=== PATIENT | female | born 1955 | race Caucasian/White ===

== ENCOUNTER 2017-06-05 15:02 | Emergency (ER) | payer MEDICAID ==
[~2017-06-05] VITALS: Ht 152.4 cm; Wt 59.0 kg
[~2017-06-05 15:02] MED LIST: NITR100C PO
[2017-06-05] MEDS ORDERED: normal saline 1000ML IV soln IVB ONE (15:40)
[2017-06-05 16:37] LABS: BASOPHILS # (AUTO) 0.1 X10'3 (0-0.2); BASOPHILS % (AUTO) 0.9 % (0-1); EOSINOPHILS # (AUTO) 0.4 X10'3 (0-0.9); EOSINOPHILS % (AUTO) 3.6 % (0-6); HEMOGLOBIN 11.9 g/dl (12.0-16.0); LYMPHOCYTES # (AUTO) 2.9 X10'3 (1.1-4.8); LYMPHOCYTES % (AUTO) 25.1 % (21-51); MEAN CORPUSCULAR HEMOGLOBIN 30.6 PG (27.0-31.0); MEAN CORPUSCULAR HGB CONC 33.1 % (33.0-36.5); MEAN CORPUSCULAR VOLUME 92.6 FL (78-98); MEAN PLATELET VOLUME 9.3 FL (7.4-10.4); MONOCYTES # (AUTO) 1.1 X10'3 (0-0.9); MONOCYTES % (AUTO) 10.1 % (2-12); NEUTROPHILS # (AUTO) 6.8 X10'3 (1.8-7.7); NEUTROPHILS % (AUTO) 60.3 % (42-75); PLATELET COUNT 262 X10'3 (140-440); RED BLOOD COUNT 3.89 X10'6 (4.20-5.60); RED CELL DISTRIBUTION WIDTH 13.2 % (11.5-14.5); WHITE BLOOD COUNT 11.4 X10'3 (4.5-11.0)
[2017-06-05 16:47] LABS: PARTIAL THROMBOPLASTIN TIME 27 SECONDS (22-32); PROTHROMBIN TIME 9.9 SECONDS (9.0-12.0)
[2017-06-05 16:58] LABS: ALANINE AMINOTRANSFERASE 24 U/L (12-78); ALBUMIN 3.2 G/DL (3.4-5.0); ALBUMIN/GLOBULIN RATIO 0.7 (1.1-1.5); ALKALINE PHOSPHATASE 127 IU/L (46-116); ANION GAP 10 (8-16); ASPARTATE AMINO TRANSFERASE 15 U/L (10-37); BILIRUBIN,TOTAL 0.2 MG/DL (0.1-1.0); BLOOD UREA NITROGEN 36 MG/DL (7-18); BUN/CREATININE RATIO 15.9 (6.6-38.0); CALCIUM 9.2 MG/DL (8.5-10.1); CHLORIDE 112 MMOL/L (99-107); CREATININE 2.27 MG/DL (0.40-0.90); ETHANOL < 0.010 GM/DL (0.0-0.010); GLUCOSE 163 MG/DL (70-104); MAGNESIUM 1.9 MG/DL (1.5-2.4); PHOSPHORUS 3.3 MG/DL (2.3-4.5); POTASSIUM 4.3 MMOL/L (3.5-5.1); SODIUM 144 MMOL/L (135-145); TOTAL CARBON DIOXIDE 21.7 MMOL/L (24-32); TOTAL PROTEIN 7.6 G/DL (6.4-8.2); eGFR 22 ML/MIN
[2017-06-05 17:06] LABS: ACETAMINOPHEN < 2.0 UG/ML (10-30)
[2017-06-05 17:11] LABS: ABG HCO3 16.1 mmol/L (22.0-26.0); ABG OXYGEN SATURATION 95.7 % (95-98); ABG PCO2 (T) 32.1 mmHg (32.0-45.0); ABG PH (T) 7.317 (7.350-7.450); ABG PO2 (T) 83.7 mmHg (83-108); ALLEN'S TEST Positive; FCOHb 0.7 % (0.5-1.5); FMetHb 0.3 % (0.3-1.12); FO2Hb 94.7 % (94-100); RESPIRATORY RATE (OBSERVED) 20 b/min; TOTAL HEMOGLOBIN 12.2 G/dl (12.0-16.0)
[2017-06-05 18:41] LABS: CLARITY,URINE Clear (Clear); COLOR,URINE Yellow (Yellow); GLUCOSE, URINE 100 mg/dl (Neg); KETONES,URINE Negative (Neg); LEUKOCYTE ESTERASE ,URINE Negative (Neg); NITRITES, URINE Negative (Neg); OCCULT BLOOD,URINE Negative (Neg); PH,URINE 5.5 (4.8-8.0); PROTEIN,URINE Trace mg/dl (Neg); UROBILINOGEN,URINE 0.2 E.U/dL (0.2-1.0)
[2017-06-05 18:53] LABS: URINE AMPHETAMINE SCREEN NEGATIVE (Neg); URINE BARBITUATE SCREEN NEGATIVE (Neg); URINE BENZODIAZEPINES SCREEN NEGATIVE (Neg); URINE CANNABINOID SCREEN NEGATIVE (Neg); URINE COCAINE SCREEN NEGATIVE (Neg); URINE METHADONE SCREEN NEGATIVE (Neg); URINE OPIATE SCREEN NEGATIVE (Neg); URINE PHENCYCLIDINE SCREEN NEGATIVE (Neg)
[2017-06-05 18:56] LABS: BACTERIA,URINE FEW /HPF (Neg); RBC,URINE 0-2 /HPF (0-2); SQUAMOUS EPITHELIAL CELL,UR FEW /LPF (FEW); UA COLLECTION TYPE CLN CATCH MIDSTREAM; WBC,URINE NONE SEEN /HPF (0-4)
[2017-06-05] MEDS ORDERED: OMEP20TA5 PO (19:20)
[2017-06-05] MEDS ORDERED: KEF125L PO (19:20)
[2017-06-05] MEDS ORDERED: CEPH500C2 PO (19:20)
[2017-06-05] MEDS ORDERED: SYN0.088T PO (19:20)
[2017-06-05] MEDS ORDERED: METO50TA17 PO (19:20)
[2017-06-05] MEDS ORDERED: ACET-2319 PO (19:20)
[2017-06-05] MEDS ORDERED: LORA-269 PO (19:20)
[2017-06-05] MEDS ORDERED: BACL10TA2 PO (19:20)
[2017-06-05] MEDS ORDERED: METF500T PO (19:20)
[2017-06-05] MEDS ORDERED: GLIM2TAB PO (20:09)
[2017-06-05 20:18] VITALS: BP 201/201
[2017-06-08] MEDS ORDERED: glimepiride 1 MG tablet PO SCH (09:00)
== END 2017-06-05 20:36 | disposition home or self-care (01) ==
LOC: ER 15:02
DX: E11.65 Type 2 diabetes mellitus with hyperglycemia (principal); I10 Essential (primary) hypertension; R41.82 Altered mental status, unspecified
CPT/HCPCS: 36415; 36600; 70450; 71010; 80053; 80305; 80320; 80329; 81001; 82140; 82803; 82948; 83735; 84100; 84484; 85018; 85025; 85610; 85730; 93005; 96360; 99285; J7030

== ENCOUNTER 2017-06-10 12:58 | Inpatient (IN) | payer MEDICAID ==
[~2017-06-10] VITALS: Ht 152.4 cm; Wt 52.3 kg
[~2017-06-10 12:58] MED LIST changes: +ACET-2319 PO; +BACL10TA2 PO; +CEPH500C2 PO; +GLIM2TAB PO; +LORA-269 PO; +METF500T PO; +METO50TA17 PO; -NITR100C PO; +OMEP20TA5 PO; +SYN0.088T PO
[2017-06-10 14:40] LABS: BASOPHILS # (AUTO) 0.1 X10'3 (0-0.2); BASOPHILS % (AUTO) 0.5 % (0-1); EOSINOPHILS # (AUTO) 0.3 X10'3 (0-0.9); EOSINOPHILS % (AUTO) 2.1 % (0-6); HEMATOCRIT 36.2 % (35.0-45.0); LYMPHOCYTES # (AUTO) 5.4 X10'3 (1.1-4.8); LYMPHOCYTES % (AUTO) 39.9 % (21-51); MEAN CORPUSCULAR HEMOGLOBIN 30.4 PG (27.0-31.0); MEAN CORPUSCULAR HGB CONC 33.2 % (33.0-36.5); MEAN CORPUSCULAR VOLUME 91.6 FL (78-98); MEAN PLATELET VOLUME 9.7 FL (7.4-10.4); MONOCYTES # (AUTO) 0.8 X10'3 (0-0.9); NEUTROPHILS # (AUTO) 6.9 X10'3 (1.8-7.7); NEUTROPHILS % (AUTO) 51.5 % (42-75); PLATELET COUNT 312 X10'3 (140-440); RED BLOOD COUNT 3.95 X10'6 (4.20-5.60); WHITE BLOOD COUNT 13.4 X10'3 (4.5-11.0)
[2017-06-10 14:47] LABS: INR 0.9 INR; PROTHROMBIN TIME 9.6 SECONDS (9.0-12.0)
[2017-06-10 14:56] LABS: LACTIC SEPSIS 1.2 MMOL/L (0.4-2.0)
[2017-06-10 15:03] LABS: ALANINE AMINOTRANSFERASE 26 U/L (12-78); ALBUMIN 3.6 G/DL (3.4-5.0); ALBUMIN/GLOBULIN RATIO 0.8 (1.1-1.5); ALKALINE PHOSPHATASE 126 IU/L (46-116); ANION GAP 12 (8-16); ASPARTATE AMINO TRANSFERASE 12 U/L (10-37); BILIRUBIN,TOTAL 0.2 MG/DL (0.1-1.0); BLOOD UREA NITROGEN 40 MG/DL (7-18); BUN/CREATININE RATIO 22.1 (6.6-38.0); CALCIUM 9.9 MG/DL (8.5-10.1); CHLORIDE 106 MMOL/L (99-107); CREATININE 1.81 MG/DL (0.40-0.90); GLUCOSE 161 MG/DL (70-104); POTASSIUM 4.2 MMOL/L (3.5-5.1); SODIUM 141 MMOL/L (135-145); TOTAL CARBON DIOXIDE 23.5 MMOL/L (24-32); TOTAL PROTEIN 8.3 G/DL (6.4-8.2); eGFR 29 ML/MIN
[2017-06-10 15:04] LABS: CREATINE KINASE 81 U/L (26-192); MAGNESIUM 2.4 MG/DL (1.5-2.4); PHOSPHORUS 4.6 MG/DL (2.3-4.5)
[2017-06-10 15:05] LABS: ETHANOL < 0.010 GM/DL (0.0-0.010)
[2017-06-10] MEDS ORDERED: CefTRIAXone 2gm/NS 100ml IVPB 100 ML IV ONE (16:45)
[2017-06-10] MEDS ORDERED: azithromycin/NS 500mg/250ml 250 ML IV ONE (16:45)
[2017-06-10] MEDS ORDERED: magnesium hydroxide 30ml (MOM) UD suspension PO PRN (16:55)
[2017-06-10] MEDS ORDERED: magnesium 4gm in 100ml NS 100 ML IV PRN (16:55)
[2017-06-10] MEDS ORDERED: HYDROcodone/acetaminophen 5mg/325mg tablet PO PRN (16:55)
[2017-06-10] MEDS ORDERED: magnesium Cl slow-release 64mg tablet PO PRN (16:55)
[2017-06-10] MEDS ORDERED: mag hydrox/Alum hydrox/simeth 30ml oral suspension PO PRN (16:55)
[2017-06-10] MEDS ORDERED: acetaminophen 325mg tablet PO PRN (16:55)
[2017-06-10] MEDS: normal saline 1000ml 1,000 ML IV SCH (16:55)
[2017-06-10] MEDS ORDERED: metoclopramide 5 mg/ml inj IV PRN (16:55)
[2017-06-10] MEDS ORDERED: potassium Cl 40MEQ/NS 500ml 500 ML IV PRN ×2 (16:55)
[2017-06-10] MEDS ORDERED: magnesium 2GM in 50ml NS 50 ML IV PRN (16:55)
[2017-06-10] MEDS ORDERED: albuterol 2.5 MG/3 ML nebule NEB PRN (16:55)
[2017-06-10] MEDS ORDERED: morphine sulfate 8 MG/ML SYRINGE IV PRN (16:55)
[2017-06-10] MEDS ORDERED: ondansetron/PF 4mg/2ml inj IV PRN (16:55)
[2017-06-10] MEDS ORDERED: potassium Cl 20 mEq SR tablet PO PRN ×2 (16:55)
[2017-06-10 17:53] LABS: CLARITY,URINE CLEAR (Clear); COLOR,URINE YELLOW (Yellow); GLUCOSE, URINE 100 mg/dl (Neg); KETONES,URINE NEGATIVE (Neg); LEUKOCYTE ESTERASE ,URINE NEGATIVE (Neg); NITRITES, URINE NEGATIVE (Neg); OCCULT BLOOD,URINE TRACE-INTACT (Neg); PROTEIN,URINE NEGATIVE (Neg); UROBILINOGEN,URINE 0.2 E.U/dL (0.2-1.0)
[2017-06-10 17:54] LABS: UA COLLECTION TYPE VOIDED
[2017-06-10 17:55] LABS: RBC,URINE 0-2 /HPF (0-2); WBC,URINE 0-4 /HPF (0-4)
[2017-06-10 17:56] LABS: BACTERIA,URINE NONE SEEN /HPF (Neg); SQUAMOUS EPITHELIAL CELL,UR NONE SEEN /LPF (FEW)
[2017-06-10 18:00] VITALS: BP 165/93
[2017-06-10 18:05] LABS: URINE AMPHETAMINE SCREEN NEGATIVE (Neg); URINE BARBITUATE SCREEN NEGATIVE (Neg); URINE BENZODIAZEPINES SCREEN NEGATIVE (Neg); URINE CANNABINOID SCREEN NEGATIVE (Neg); URINE COCAINE SCREEN NEGATIVE (Neg); URINE METHADONE SCREEN NEGATIVE (Neg); URINE OPIATE SCREEN NEGATIVE (Neg); URINE PHENCYCLIDINE SCREEN NEGATIVE (Neg)
[2017-06-10] MEDS: docusate sod 100mg capsule PO SCH (19:52)
[2017-06-10] MEDS: enoxaparin 30mg/0.3ml syringe SQ SCH (19:55)
[2017-06-10] MEDS ORDERED: CefTRIAXone/dextrose 2GM bag 50 ML IV ONE (20:00)
[2017-06-10] MEDS ORDERED: glucagon, human recombinant 1mg kit SUBCUT PRN (20:55)
[2017-06-10] MEDS ORDERED: dextrose ORAL solution 15 GM/59 ML bottle PO PRN ×2 (20:55)
[2017-06-10] MEDS ORDERED: dextrose 50%-water 50ml dispensing syringe IV PRN ×2 (20:55)
[2017-06-10] MEDS ORDERED: MESSAGE TO PHARMACY PO ONE (20:55)
[2017-06-10 22:00] VITALS: BP 132/60
[2017-06-11] MEDS: normal saline 1000ml 1,000 ML IV SCH ×2 (00:03→08:57)
[2017-06-11 05:00] VITALS: BP 159/94
[2017-06-11 06:40] LABS: BASOPHILS # (AUTO) 0.1 X10'3 (0-0.2); BASOPHILS % (AUTO) 0.8 % (0-1); EOSINOPHILS # (AUTO) 0.3 X10'3 (0-0.9); EOSINOPHILS % (AUTO) 2.4 % (0-6); HEMATOCRIT 34.5 % (35.0-45.0); HEMOGLOBIN 11.4 g/dl (12.0-16.0); LYMPHOCYTES # (AUTO) 5.7 X10'3 (1.1-4.8); LYMPHOCYTES % (AUTO) 42.6 % (21-51); MEAN CORPUSCULAR HEMOGLOBIN 30.3 PG (27.0-31.0); MEAN CORPUSCULAR VOLUME 91.6 FL (78-98); MEAN PLATELET VOLUME 9.7 FL (7.4-10.4); MONOCYTES # (AUTO) 0.9 X10'3 (0-0.9); MONOCYTES % (AUTO) 6.6 % (2-12); NEUTROPHILS # (AUTO) 6.3 X10'3 (1.8-7.7); NEUTROPHILS % (AUTO) 47.6 % (42-75); PLATELET COUNT 283 X10'3 (140-440); RED BLOOD COUNT 3.77 X10'6 (4.20-5.60); RED CELL DISTRIBUTION WIDTH 12.9 % (11.5-14.5); WHITE BLOOD COUNT 13.3 X10'3 (4.5-11.0)
[2017-06-11 06:53] LABS: ALBUMIN 3.2 G/DL (3.4-5.0); ANION GAP 11 (8-16); BLOOD UREA NITROGEN 35 MG/DL (7-18); BUN/CREATININE RATIO 19.2 (6.6-38.0); CHLORIDE 107 MMOL/L (99-107); CREATININE 1.82 MG/DL (0.40-0.90); GLUCOSE 118 MG/DL (70-104); MAGNESIUM 2.1 MG/DL (1.5-2.4); POTASSIUM 4.4 MMOL/L (3.5-5.1); SODIUM 140 MMOL/L (135-145); eGFR 28 ML/MIN
[2017-06-11] MEDS ORDERED: azithromycin/NS 500mg/250ml 250 ML IV SCH (08:00)
[2017-06-11] MEDS ORDERED: K and/or MAG REPLACEMENT MC SCH (08:00)
[2017-06-11] MEDS ORDERED: cefTRIAXone 1g/NS 100ml IVPB 100 ML IV SCH (08:00)
[2017-06-11] MEDS: docusate sod 100mg capsule PO SCH (08:17)
[2017-06-11] MEDS: enoxaparin 30mg/0.3ml syringe SQ SCH (08:18)
[2017-06-11 10:00] VITALS: BP 127/79
[2017-06-11] MEDS ORDERED: FLU VACC QS2017-18 36MOS UP/PF 60 MCG/0.5 ML SYRINGE IMVAC ONE (10:00)
[2017-06-11] MEDS ORDERED: pneumococcal 23-VAL P-sac vacc 25 mcg/0.5ml vial IMVAC ONE (10:00)
[2017-06-11] MEDS ORDERED: AZIT500T5 PO (12:44)
[2017-06-11] MEDS ORDERED: lactobacillus rhamnosus 10,000 MMU CELLS/CAPSULE PO SCH (17:30)
[2017-06-12] MEDS ORDERED: enoxaparin 30mg/0.3ml syringe SUBCUT SCH (08:00)
== END 2017-06-11 13:57 | disposition home or self-care (01) | DRG 720 ==
LOC: ER 12:59 → ED HOLD 16:55 → EDBEDREQ 17:26 → ORTHO 4S 17:55
PROVIDERS: ADMIT Internal Medicine; ATTEND Internal Medicine
DX: A41.9 Sepsis, unspecified organism (principal); N17.0 Acute kidney failure with tubular necrosis; E43 Unspecified severe protein-calorie malnutrition; G93.40 Encephalopathy, unspecified; E11.22 Type 2 diabetes mellitus with diabetic chronic kidney disease; J15.9 Unspecified bacterial pneumonia; I10 Essential (primary) hypertension; E11.9 Type 2 diabetes mellitus without complications; E03.9 Hypothyroidism, unspecified; M62.50 Muscle wasting and atrophy, not elsewhere classified, unspecified site; I12.9 Hypertensive chronic kidney disease with stage 1 through stage 4 chronic kidney disease, or unspecified chronic kidney disease; N18.9 Chronic kidney disease, unspecified; F41.9 Anxiety disorder, unspecified; Z87.440 Personal history of urinary (tract) infections; Z79.899 Other long term (current) drug therapy; Z68.22 Body mass index [BMI] 22.0-22.9, adult; Z23 Encounter for immunization
CPT/HCPCS: 36415; 70450; 71010; 80048; 80053; 80305; 80320; 81001; 82140; 82550; 82948; 83036; 83605; 83735; 84100; 84145; 84443; 85025; 85610; 87040; 87070; 90732; 94760; 97161; 97530; 99285; J0456; J0696; J1650; J2405; J7030

== ENCOUNTER 2017-12-11 04:35 | Inpatient (IN) | payer MEDICARE, MEDICAID ==
[~2017-12-11] VITALS: Ht 165.1 cm; Wt 70.0 kg
[2017-12-11] VITALS (9 sets, daily range): BP systolic 122–150; BP diastolic 59–81
[~2017-12-11 04:35] MED LIST changes: -ACET-2319 PO; +AMLO5TAB4 PO; +ATOR40TA72 PO; -CEPH500C2 PO; +FENO160T PO; -GLIM2TAB PO; +HYDR-3965 PO; +INSU100I31 SQ; +LEVO50TA8 PO; +LISI-600 PO; -METF500T PO; +SERT50TA10 PO; -SYN0.088T PO
[2017-12-11] MEDS ORDERED: naloxone 2mg/2ml inj IV ONE (04:40)
[2017-12-11] MEDS ORDERED: normal saline 1000ML IV soln IVB ONE (04:40)
[2017-12-11 05:20] LABS: BASOPHILS % (AUTO) 0.3 % (0-1); EOSINOPHILS # (AUTO) 0.1 X10'3 (0-0.9); LYMPHOCYTES % (AUTO) 24.1 % (21-51); MEAN CORPUSCULAR HEMOGLOBIN 27.6 PG (27.0-31.0); MEAN CORPUSCULAR HGB CONC 32.5 % (33.0-36.5); MEAN CORPUSCULAR VOLUME 84.8 FL (78-98); MEAN PLATELET VOLUME 11.3 FL (7.4-10.4); MONOCYTES # (AUTO) 0.8 X10'3 (0-0.9); MONOCYTES % (AUTO) 6.5 % (2-12); NEUTROPHILS # (AUTO) 8.5 X10'3 (1.8-7.7); NEUTROPHILS % (AUTO) 68.1 % (42-75); PLATELET COUNT 202 X10'3 (140-440); RED CELL DISTRIBUTION WIDTH 14.8 % (11.5-14.5); WHITE BLOOD COUNT 12.4 X10'3 (4.5-11.0)
[2017-12-11 05:31] LABS: AMMONIA < 10 UMOL/L (11-32)
[2017-12-11 05:36] LABS: LACTIC SEPSIS 0.8 MMOL/L (0.4-2.0)
[2017-12-11 05:41] LABS: D-DIMER 17.32 MG/L FEU (0-0.50); INR 1.1 INR; PARTIAL THROMBOPLASTIN TIME 27 SECONDS (22-32); PROTHROMBIN TIME 10.9 SECONDS (9.0-12.0)
[2017-12-11 05:47] LABS: ALANINE AMINOTRANSFERASE 30 U/L (12-78); ALBUMIN 3.2 G/DL (3.4-5.0); ALBUMIN/GLOBULIN RATIO 0.8 (1.1-1.5); ALKALINE PHOSPHATASE 72 IU/L (46-116); ANION GAP 14 (8-16); ASPARTATE AMINO TRANSFERASE 33 U/L (10-37); BILIRUBIN,TOTAL 0.2 MG/DL (0.1-1.0); BLOOD UREA NITROGEN 58 MG/DL (7-18); BUN/CREATININE RATIO 19.1 (6.6-38.0); CALCIUM 8.2 MG/DL (8.5-10.1); CHLORIDE 112 MMOL/L (99-107); CREATININE 3.03 MG/DL (0.40-0.90); GLUCOSE 114 MG/DL (70-104); HEMATOCRIT 20.4 % (35.0-45.0); HEMOGLOBIN 6.6 g/dl (12.0-16.0); POTASSIUM 4.4 MMOL/L (3.5-5.1); SODIUM 147 MMOL/L (135-145); TOTAL CARBON DIOXIDE 20.9 MMOL/L (24-32); TOTAL PROTEIN 7.2 G/DL (6.4-8.2); eGFR 16 ML/MIN
[2017-12-11 05:49] LABS: CREATINE KINASE 313 U/L (26-192); ETHANOL < 0.010 GM/DL (0.0-0.010); PHOSPHORUS 5.3 MG/DL (2.3-4.5)
[2017-12-11 05:53] LABS: ACETAMINOPHEN < 2.0 UG/ML (10-30)
[2017-12-11] MEDS ORDERED: normal saline 1000ml 1,000 ML IV ONE (06:00)
[2017-12-11 06:18] LABS: URINE AMPHETAMINE SCREEN NEGATIVE (Neg); URINE BARBITUATE SCREEN NEGATIVE (Neg); URINE BENZODIAZEPINES SCREEN NEGATIVE (Neg); URINE CANNABINOID SCREEN NEGATIVE (Neg); URINE COCAINE SCREEN NEGATIVE (Neg); URINE METHADONE SCREEN NEGATIVE (Neg); URINE OPIATE SCREEN POSITIVE (Neg); URINE PHENCYCLIDINE SCREEN NEGATIVE (Neg)
[2017-12-11 06:24] LABS: CLARITY,URINE CLEAR (Clear); COLOR,URINE STRAW (Yellow); GLUCOSE, URINE 100 mg/dl (Neg); KETONES,URINE NEGATIVE (Neg); LEUKOCYTE ESTERASE ,URINE TRACE (Neg); NITRITES, URINE NEGATIVE (Neg); OCCULT BLOOD,URINE TRACE-INTACT (Neg); PROTEIN,URINE NEGATIVE (Neg); UROBILINOGEN,URINE 0.2 E.U/dL (0.2-1.0)
[2017-12-11 06:26] LABS: UA COLLECTION TYPE STRAIGHT CATH
[2017-12-11 06:31] LABS: BACTERIA,URINE NONE SEEN /HPF (Neg); MUCUS STRANDS FEW /LPF (Neg); RBC,URINE 0-2 /HPF (0-2); RENAL CELLS, URINE FEW /HPF; SQUAMOUS EPITHELIAL CELL,UR NONE SEEN /LPF (FEW); WBC CLUMPS,URINE FEW /HPF (NEGATIVE); WBC,URINE 0-4 /HPF (0-4)
[2017-12-11 06:42] LABS: ANISOCYTOSIS 1+; HYPOCHROMASIA 1+; LARGE PLATELETS MODERATE; PLATELET ESTIMATE NORMAL; POIKILOCYTOSIS 1+; POLYCHROMASIA 1+; TARGET CELLS FEW
[2017-12-11] MEDS ORDERED: HYDR-4069 PO (07:28)
[2017-12-11] MEDS ORDERED: FLO0.4C PO (07:28)
[2017-12-11] MEDS ORDERED: ASPI81TA52 PO (07:28)
[2017-12-11] MEDS ORDERED: LYR75C PO (07:28)
[2017-12-11] MEDS ORDERED: FURO-150 PO (07:28)
[2017-12-11] MEDS ORDERED: HYDR-3686 PO (07:28)
[2017-12-11] MEDS ORDERED: morphine 4 MG/ML inj SYRINge IV ONE (08:45)
[2017-12-11] MEDS ORDERED: magnesium hydroxide 30ml (MOM) UD suspension PO PRN (10:00)
[2017-12-11] MEDS ORDERED: thiamine 100mg/ml 2ml inj. IV ONE ×2 (10:00→10:30)
[2017-12-11] MEDS ORDERED: ondansetron/PF 4mg/2ml inj IV PRN (10:00)
[2017-12-11] MEDS ORDERED: dextrose 50%-water 50ml dispensing syringe IV PRN ×3 (10:00→20:50)
[2017-12-11] MEDS ORDERED: mag hydrox/Alum hydrox/simeth 30ml oral suspension PO PRN (10:00)
[2017-12-11] MEDS ORDERED: thiamine inj. 100 MG in normal saline 100ml IV soln 99 ML IV ONE (10:15)
[2017-12-11] MEDS: normal saline 1000ml 1,000 ML IV SCH ×2 (11:00→19:58)
[2017-12-11] MEDS: thiamine inj. 100 MG, MVI, adult No.4 with vit. K 10 ML in dextrose 5% water 500ml 489 ML IV SCH ×3 (11:21)
[2017-12-11] MEDS: HYDROmorphone 1 mg/ml syringe IV PRN ×2 (15:15→21:07)
[2017-12-11] MEDS: LORazepam 2 mg/ml vial IV PRN (15:18)
[2017-12-11] MEDS ORDERED: glucagon, human recombinant 1mg kit SUBCUT PRN (20:50)
[2017-12-11] MEDS ORDERED: dextrose ORAL solution 15 GM/59 ML bottle PO PRN ×2 (20:50)
[2017-12-11] MEDS ORDERED: MESSAGE TO PHARMACY PO ONE (20:50)
[2017-12-11] MEDS: insulin glargine (Lantus) pen - multi-dose SQ SCH (21:00)
[2017-12-12] VITALS (8 sets, daily range): BP systolic 129–154; BP diastolic 69–93
[2017-12-12] MEDS: LORazepam 2 mg/ml vial IV PRN ×6 (00:30→11:17)
[2017-12-12] MEDS: HYDROmorphone 1 mg/ml syringe IV PRN ×3 (04:04→19:07)
[2017-12-12 05:32] LABS: BASOPHILS # (AUTO) 0.1 X10'3 (0-0.2); BASOPHILS % (AUTO) 0.8 % (0-1); EOSINOPHILS # (AUTO) 0.2 X10'3 (0-0.9); EOSINOPHILS % (AUTO) 1.6 % (0-6); HEMATOCRIT 28.3 % (35.0-45.0); HEMOGLOBIN 9.4 g/dl (12.0-16.0); LYMPHOCYTES # (AUTO) 2.7 X10'3 (1.1-4.8); LYMPHOCYTES % (AUTO) 25.3 % (21-51); MEAN CORPUSCULAR HEMOGLOBIN 28.5 PG (27.0-31.0); MEAN CORPUSCULAR HGB CONC 33.2 % (33.0-36.5); MEAN PLATELET VOLUME 12.1 FL (7.4-10.4); MONOCYTES # (AUTO) 0.8 X10'3 (0-0.9); MONOCYTES % (AUTO) 7.7 % (2-12); NEUTROPHILS # (AUTO) 6.9 X10'3 (1.8-7.7); NEUTROPHILS % (AUTO) 64.6 % (42-75); PLATELET COUNT 179 X10'3 (140-440); RED CELL DISTRIBUTION WIDTH 14.3 % (11.5-14.5); WHITE BLOOD COUNT 10.7 X10'3 (4.5-11.0)
[2017-12-12 06:01] LABS: ALBUMIN 3.1 G/DL (3.4-5.0); ANION GAP 15 (8-16); BLOOD UREA NITROGEN 42 MG/DL (7-18); BUN/CREATININE RATIO 15.2 (6.6-38.0); CALCIUM 8.7 MG/DL (8.5-10.1); CHLORIDE 112 MMOL/L (99-107); CREATININE 2.76 MG/DL (0.40-0.90); GLUCOSE 86 MG/DL (70-104); SODIUM 147 MMOL/L (135-145); TOTAL CARBON DIOXIDE 20.5 MMOL/L (24-32); eGFR 18 ML/MIN
[2017-12-12] MEDS: normal saline 1000ml 1,000 ML IV SCH (06:03)
[2017-12-12 06:20] LABS: LARGE PLATELETS FEW; PLATELET ESTIMATE NORMAL
[2017-12-12] MEDS: thiamine inj. 100 MG, MVI, adult No.4 with vit. K 10 ML in dextrose 5% water 500ml 489 ML IV SCH ×3 (07:16)
[2017-12-12] MEDS: sodium chloride 0.45% 1,000 ML IV SCH ×2 (12:07→21:39)
[2017-12-12] MEDS: insulin glargine (Lantus) pen - multi-dose SQ SCH (21:00)
[2017-12-13] MEDS: HYDROmorphone 1 mg/ml syringe IV PRN ×5 (00:41→19:46)
[2017-12-13 03:00] VITALS: BP 154/84
[2017-12-13 05:33] LABS: BASOPHILS # (AUTO) 0.1 X10'3 (0-0.2); BASOPHILS % (AUTO) 0.9 % (0-1); EOSINOPHILS % (AUTO) 0.1 % (0-6); HEMATOCRIT 27.5 % (35.0-45.0); HEMOGLOBIN 9.1 g/dl (12.0-16.0); LYMPHOCYTES # (AUTO) 2.2 X10'3 (1.1-4.8); MEAN CORPUSCULAR HEMOGLOBIN 28.6 PG (27.0-31.0); MEAN CORPUSCULAR HGB CONC 33.2 % (33.0-36.5); MEAN CORPUSCULAR VOLUME 85.9 FL (78-98); MEAN PLATELET VOLUME 12.1 FL (7.4-10.4); MONOCYTES % (AUTO) 8.2 % (2-12); NEUTROPHILS # (AUTO) 8.5 X10'3 (1.8-7.7); NEUTROPHILS % (AUTO) 71.8 % (42-75); PLATELET COUNT 192 X10'3 (140-440); WHITE BLOOD COUNT 11.8 X10'3 (4.5-11.0)
[2017-12-13 06:00] VITALS: BP 157/93
[2017-12-13 06:07] LABS: ALBUMIN 3.1 G/DL (3.4-5.0); ANION GAP 21 (8-16); BLOOD UREA NITROGEN 39 MG/DL (7-18); BUN/CREATININE RATIO 14.8 (6.6-38.0); CALCIUM 8.6 MG/DL (8.5-10.1); CHLORIDE 107 MMOL/L (99-107); CREATININE 2.64 MG/DL (0.40-0.90); GLUCOSE 114 MG/DL (70-104); POTASSIUM 3.4 MMOL/L (3.5-5.1); SODIUM 143 MMOL/L (135-145); TOTAL CARBON DIOXIDE 15.3 MMOL/L (24-32); eGFR 18 ML/MIN
[2017-12-13] MEDS: lisinopril 20mg tablet PO SCH (08:00)
[2017-12-13] MEDS: pregabalin 75mg capsule PO SCH ×2 (08:00→20:00)
[2017-12-13] MEDS: thiamine inj. 100 MG, MVI, adult No.4 with vit. K 10 ML in dextrose 5% water 500ml 489 ML IV SCH ×3 (08:09)
[2017-12-13] MEDS: sodium chloride 0.45% 1,000 ML IV SCH ×2 (08:09→17:55)
[2017-12-13] MEDS ORDERED: LORazepam 1 MG tablet PO PRN (10:00)
[2017-12-13 11:00] VITALS: BP 150/84
[2017-12-13] MEDS: LORazepam 2 mg/ml vial IV PRN ×2 (11:57→21:53)
[2017-12-13] MEDS: hydrALAZINE 25 MG tablet PO SCH ×2 (13:23→20:00)
[2017-12-13 15:00] VITALS: BP 154/88
[2017-12-13 19:00] VITALS: BP 148/85
[2017-12-13] MEDS: metoprolol tartrate 50mg tablet PO SCH (20:00)
[2017-12-13] MEDS: insulin glargine (Lantus) pen - multi-dose SQ SCH (21:00)
[2017-12-13 23:00] VITALS: BP 155/92
[2017-12-14] MEDS: HYDROmorphone 1 mg/ml syringe IV PRN ×3 (01:00→12:43)
[2017-12-14] MEDS: sodium chloride 0.45% 1,000 ML IV SCH ×3 (01:00→23:55)
[2017-12-14] MEDS: hydrALAZINE 25 MG tablet PO SCH ×4 (02:00→21:22)
[2017-12-14 03:00] VITALS: BP 154/92
[2017-12-14 05:18] LABS: BASOPHILS # (AUTO) 0.2 X10'3 (0-0.2); BASOPHILS % (AUTO) 1.4 % (0-1); EOSINOPHILS # (AUTO) 0.1 X10'3 (0-0.9); EOSINOPHILS % (AUTO) 0.7 % (0-6); HEMATOCRIT 31.6 % (35.0-45.0); HEMOGLOBIN 10.5 g/dl (12.0-16.0); LYMPHOCYTES % (AUTO) 16.8 % (21-51); MEAN CORPUSCULAR HEMOGLOBIN 28.8 PG (27.0-31.0); MEAN CORPUSCULAR HGB CONC 33.4 % (33.0-36.5); MEAN CORPUSCULAR VOLUME 86.3 FL (78-98); MEAN PLATELET VOLUME 11.4 FL (7.4-10.4); MONOCYTES # (AUTO) 0.8 X10'3 (0-0.9); MONOCYTES % (AUTO) 6.9 % (2-12); NEUTROPHILS % (AUTO) 74.2 % (42-75); PLATELET COUNT 214 X10'3 (140-440); RED BLOOD COUNT 3.66 X10'6 (4.20-5.60); RED CELL DISTRIBUTION WIDTH 14.2 % (11.5-14.5); WHITE BLOOD COUNT 12.1 X10'3 (4.5-11.0)
[2017-12-14 05:30] VITALS: BP 134/94
[2017-12-14 05:40] LABS: ALBUMIN 2.8 G/DL (3.4-5.0); ANION GAP 17 (8-16); BLOOD UREA NITROGEN 34 MG/DL (7-18); BUN/CREATININE RATIO 14.2 (6.6-38.0); CALCIUM 8.7 MG/DL (8.5-10.1); CHLORIDE 103 MMOL/L (99-107); CREATININE 2.39 MG/DL (0.40-0.90); GLUCOSE 131 MG/DL (70-104); SODIUM 140 MMOL/L (135-145); TOTAL CARBON DIOXIDE 19.6 MMOL/L (24-32); eGFR 21 ML/MIN
[2017-12-14 05:50] LABS: POTASSIUM 2.7 MMOL/L (3.5-5.1)
[2017-12-14 06:47] LABS: LARGE PLATELETS FEW; PLATELET ESTIMATE NORMAL
[2017-12-14] MEDS ORDERED: potassium Cl 20 mEq SR tablet PO PRN ×2 (07:05)
[2017-12-14] MEDS ORDERED: potassium Cl 40MEQ/NS 500ml 500 ML IV PRN ×2 (07:05)
[2017-12-14] MEDS: aspirin 81mg tablet.DR PO SCH (09:44)
[2017-12-14] MEDS: pregabalin 75mg capsule PO SCH ×2 (09:44→20:32)
[2017-12-14] MEDS: sertraline 50mg tablet PO SCH (09:44)
[2017-12-14] MEDS: lisinopril 20mg tablet PO SCH (09:44)
[2017-12-14] MEDS: atorvastatin 20mg tablet PO SCH (09:44)
[2017-12-14] MEDS: pantoprazole 40mg Tablet.DR PO SCH (09:44)
[2017-12-14] MEDS: metoprolol tartrate 50mg tablet PO SCH ×2 (09:44→20:33)
[2017-12-14] MEDS: levoTHYROXINE 25mcg tablet PO SCH (09:44)
[2017-12-14] MEDS: LIDOcaine 1% 30ml vial 5 ML in potassium Cl 40MEQ/NS 500ml 500 ML IV PRN ×2 (09:49→14:42)
[2017-12-14 11:00] VITALS: BP 144/96
[2017-12-14 15:00] VITALS: BP 126/68
[2017-12-14 19:00] VITALS: BP 131/81
[2017-12-14] MEDS ORDERED: thiamine inj. 100 MG, MVI, adult No.4 with vit. K 10 ML in dextrose 5% water 500ml 489 ML IV SCH ×3 (21:00)
[2017-12-14] MEDS: insulin glargine (Lantus) pen - multi-dose SQ SCH (21:25)
[2017-12-14 23:00] VITALS: BP 112/72
[2017-12-15] VITALS (7 sets, daily range): BP systolic 94–112; BP diastolic 55–72
[2017-12-15] MEDS: HYDROmorphone 1 mg/ml syringe IV PRN ×3 (00:55→19:09)
[2017-12-15] MEDS: hydrALAZINE 25 MG tablet PO SCH ×4 (02:07→19:15)
[2017-12-15] MEDS: LORazepam 2 mg/ml vial IV PRN (04:26)
[2017-12-15 05:07] LABS: BASOPHILS # (AUTO) 0.1 X10'3 (0-0.2); BASOPHILS % (AUTO) 0.6 % (0-1); EOSINOPHILS # (AUTO) 0.2 X10'3 (0-0.9); EOSINOPHILS % (AUTO) 2.6 % (0-6); HEMATOCRIT 29.9 % (35.0-45.0); HEMOGLOBIN 9.9 g/dl (12.0-16.0); LYMPHOCYTES # (AUTO) 2.5 X10'3 (1.1-4.8); MEAN CORPUSCULAR HEMOGLOBIN 28.3 PG (27.0-31.0); MEAN CORPUSCULAR HGB CONC 32.9 % (33.0-36.5); MEAN PLATELET VOLUME 11.1 FL (7.4-10.4); MONOCYTES # (AUTO) 0.8 X10'3 (0-0.9); MONOCYTES % (AUTO) 9.5 % (2-12); NEUTROPHILS # (AUTO) 5.1 X10'3 (1.8-7.7); NEUTROPHILS % (AUTO) 58.3 % (42-75); PLATELET COUNT 213 X10'3 (140-440); RED BLOOD COUNT 3.48 X10'6 (4.20-5.60); RED CELL DISTRIBUTION WIDTH 14.6 % (11.5-14.5); WHITE BLOOD COUNT 8.7 X10'3 (4.5-11.0)
[2017-12-15 05:29] LABS: ALBUMIN 2.5 G/DL (3.4-5.0); ANION GAP 9 (8-16); BLOOD UREA NITROGEN 37 MG/DL (7-18); BUN/CREATININE RATIO 15.9 (6.6-38.0); CALCIUM 8.4 MG/DL (8.5-10.1); CHLORIDE 106 MMOL/L (99-107); CREATININE 2.33 MG/DL (0.40-0.90); GLUCOSE 127 MG/DL (70-104); POTASSIUM 3.9 MMOL/L (3.5-5.1); SODIUM 136 MMOL/L (135-145); eGFR 21 ML/MIN
[2017-12-15 06:43] LABS: LARGE PLATELETS FEW; PLATELET ESTIMATE NORMAL
[2017-12-15] MEDS: levoTHYROXINE 25mcg tablet PO SCH (07:49)
[2017-12-15] MEDS: metoprolol tartrate 50mg tablet PO SCH ×2 (07:49→19:15)
[2017-12-15] MEDS: atorvastatin 20mg tablet PO SCH (07:49)
[2017-12-15] MEDS: aspirin 81mg tablet.DR PO SCH (07:49)
[2017-12-15] MEDS: pregabalin 75mg capsule PO SCH ×2 (07:50→19:16)
[2017-12-15] MEDS: sertraline 50mg tablet PO SCH (07:50)
[2017-12-15] MEDS: pantoprazole 40mg Tablet.DR PO SCH (07:50)
[2017-12-15] MEDS: thiamine 100mg tablet PO SCH (07:50)
[2017-12-15] MEDS: lisinopril 20mg tablet PO SCH (07:50)
[2017-12-15] MEDS: multivitamins, therapeutics tablet PO SCH (07:50)
[2017-12-15] MEDS: insulin Lispro (HumaLOG) vial - multi-dose SQ SCH ×3 (08:01→19:24)
[2017-12-15] MEDS ORDERED: LORazepam 2 mg/ml vial IV PRN (10:00)
[2017-12-15] MEDS ORDERED: LORazepam 1 MG tablet PO PRN (10:00)
[2017-12-15] MEDS: sodium chloride 0.45% 1,000 ML IV SCH ×2 (10:41→21:57)
[2017-12-15] MEDS: insulin glargine (Lantus) pen - multi-dose SQ SCH (22:09)
[2017-12-15] MEDS: hydrOXYzine 25 MG tablet PO PRN (22:13)
[2017-12-15] MEDS: LORazepam 0.5 MG tablet PO PRN (23:44)
[2017-12-16] VITALS (7 sets, daily range): BP systolic 91–148; BP diastolic 49–98
[2017-12-16] MEDS: hydrALAZINE 25 MG tablet PO SCH ×4 (02:34→20:00)
[2017-12-16] MEDS: HYDROmorphone 1 mg/ml syringe IV PRN ×3 (02:36→18:39)
[2017-12-16 05:53] LABS: BASOPHILS # (AUTO) 0.1 X10'3 (0-0.2); BASOPHILS % (AUTO) 0.9 % (0-1); EOSINOPHILS # (AUTO) 0.3 X10'3 (0-0.9); EOSINOPHILS % (AUTO) 3.8 % (0-6); HEMATOCRIT 30.3 % (35.0-45.0); LYMPHOCYTES # (AUTO) 2.4 X10'3 (1.1-4.8); LYMPHOCYTES % (AUTO) 28.1 % (21-51); MEAN CORPUSCULAR HEMOGLOBIN 28.5 PG (27.0-31.0); MEAN CORPUSCULAR HGB CONC 32.9 % (33.0-36.5); MEAN CORPUSCULAR VOLUME 86.5 FL (78-98); MEAN PLATELET VOLUME 12.2 FL (7.4-10.4); MONOCYTES # (AUTO) 0.9 X10'3 (0-0.9); MONOCYTES % (AUTO) 10.1 % (2-12); NEUTROPHILS # (AUTO) 4.8 X10'3 (1.8-7.7); NEUTROPHILS % (AUTO) 57.1 % (42-75); PLATELET COUNT 255 X10'3 (140-440); RED CELL DISTRIBUTION WIDTH 14.7 % (11.5-14.5); WHITE BLOOD COUNT 8.5 X10'3 (4.5-11.0)
[2017-12-16 06:07] LABS: ALBUMIN 2.8 G/DL (3.4-5.0); ANION GAP 14 (8-16); BLOOD UREA NITROGEN 37 MG/DL (7-18); BUN/CREATININE RATIO 14.9 (6.6-38.0); CALCIUM 8.8 MG/DL (8.5-10.1); CHLORIDE 106 MMOL/L (99-107); CREATININE 2.48 MG/DL (0.40-0.90); GLUCOSE 124 MG/DL (70-104); POTASSIUM 3.8 MMOL/L (3.5-5.1); SODIUM 139 MMOL/L (135-145); TOTAL CARBON DIOXIDE 19.2 MMOL/L (24-32); eGFR 20 ML/MIN
[2017-12-16 06:14] LABS: LARGE PLATELETS FEW; PLATELET ESTIMATE NORMAL
[2017-12-16] MEDS: sodium chloride 0.45% 1,000 ML IV SCH ×2 (06:35→16:44)
[2017-12-16] MEDS: thiamine 100mg tablet PO SCH (08:19)
[2017-12-16] MEDS: multivitamins, therapeutics tablet PO SCH (08:19)
[2017-12-16] MEDS: metoprolol tartrate 50mg tablet PO SCH ×2 (08:20→20:00)
[2017-12-16] MEDS: levoTHYROXINE 25mcg tablet PO SCH (08:20)
[2017-12-16] MEDS: sertraline 50mg tablet PO SCH (08:21)
[2017-12-16] MEDS: pregabalin 75mg capsule PO SCH ×2 (08:21→20:46)
[2017-12-16] MEDS: lisinopril 20mg tablet PO SCH (08:22)
[2017-12-16] MEDS: pantoprazole 40mg Tablet.DR PO SCH (08:22)
[2017-12-16] MEDS: atorvastatin 20mg tablet PO SCH (08:23)
[2017-12-16] MEDS: LORazepam 0.5 MG tablet PO PRN (08:23)
[2017-12-16] MEDS: aspirin 81mg tablet.DR PO SCH (08:23)
[2017-12-16] MEDS: insulin Lispro (HumaLOG) vial - multi-dose SQ SCH ×2 (13:47→18:43)
[2017-12-16] MEDS: hydrOXYzine 25 MG tablet PO PRN (14:44)
[2017-12-16] MEDS: insulin glargine (Lantus) pen - multi-dose SQ SCH (21:40)
[2017-12-17 02:00] VITALS: BP 98/58
[2017-12-17] MEDS: hydrALAZINE 25 MG tablet PO SCH ×4 (02:00→19:11)
[2017-12-17] MEDS: sodium chloride 0.45% 1,000 ML IV SCH ×3 (03:55→21:55)
[2017-12-17] MEDS: LORazepam 0.5 MG tablet PO PRN (05:04)
[2017-12-17 06:00] VITALS: BP 115/63
[2017-12-17] MEDS: metoprolol tartrate 50mg tablet PO SCH ×2 (07:14→19:11)
[2017-12-17] MEDS: levoTHYROXINE 25mcg tablet PO SCH (07:14)
[2017-12-17] MEDS: pantoprazole 40mg Tablet.DR PO SCH (07:14)
[2017-12-17] MEDS: atorvastatin 20mg tablet PO SCH (07:14)
[2017-12-17] MEDS: pregabalin 75mg capsule PO SCH ×2 (07:14→19:11)
[2017-12-17] MEDS: multivitamins, therapeutics tablet PO SCH (07:14)
[2017-12-17] MEDS: thiamine 100mg tablet PO SCH (07:14)
[2017-12-17] MEDS: lisinopril 20mg tablet PO SCH (07:14)
[2017-12-17] MEDS: aspirin 81mg tablet.DR PO SCH (07:14)
[2017-12-17] MEDS: sertraline 50mg tablet PO SCH (07:14)
[2017-12-17] MEDS: insulin Lispro (HumaLOG) vial - multi-dose SQ SCH ×2 (09:07→19:35)
[2017-12-17 10:00] VITALS: BP 101/56
[2017-12-17 14:30] LABS: ALBUMIN 2.5 G/DL (3.4-5.0); ANION GAP 12 (8-16); BLOOD UREA NITROGEN 44 MG/DL (7-18); BUN/CREATININE RATIO 15.3 (6.6-38.0); CALCIUM 8.5 MG/DL (8.5-10.1); CHLORIDE 105 MMOL/L (99-107); CREATININE 2.87 MG/DL (0.40-0.90); GLUCOSE 219 MG/DL (70-104); POTASSIUM 4.1 MMOL/L (3.5-5.1); SODIUM 137 MMOL/L (135-145); TOTAL CARBON DIOXIDE 19.6 MMOL/L (24-32); eGFR 17 ML/MIN
[2017-12-17 18:00] VITALS: BP 146/81
[2017-12-17] MEDS: HYDROmorphone 1 mg/ml syringe IV PRN (19:11)
[2017-12-17] MEDS: insulin glargine (Lantus) pen - multi-dose SQ SCH (21:00)
[2017-12-17 22:00] VITALS: BP 109/53
[2017-12-18 02:00] VITALS: BP 120/66
[2017-12-18] MEDS: HYDROcodone/acetaminophen 10/325mg tab PO PRN ×6 (02:21→21:33)
[2017-12-18] MEDS: hydrALAZINE 25 MG tablet PO SCH ×4 (02:21→19:46)
[2017-12-18] MEDS: LORazepam 0.5 MG tablet PO PRN (05:55)
[2017-12-18 06:00] VITALS: BP 108/52
[2017-12-18] MEDS: pantoprazole 40mg Tablet.DR PO SCH (07:49)
[2017-12-18] MEDS: pregabalin 75mg capsule PO SCH ×2 (07:49→19:46)
[2017-12-18] MEDS: multivitamins, therapeutics tablet PO SCH (07:49)
[2017-12-18] MEDS: metoprolol tartrate 50mg tablet PO SCH ×2 (07:50→19:46)
[2017-12-18] MEDS: lisinopril 20mg tablet PO SCH (07:50)
[2017-12-18] MEDS: atorvastatin 20mg tablet PO SCH (07:50)
[2017-12-18] MEDS: aspirin 81mg tablet.DR PO SCH (07:50)
[2017-12-18] MEDS: levoTHYROXINE 25mcg tablet PO SCH (07:50)
[2017-12-18] MEDS: sertraline 50mg tablet PO SCH (07:51)
[2017-12-18] MEDS: thiamine 100mg tablet PO SCH (07:51)
[2017-12-18] MEDS: sodium chloride 0.45% 1,000 ML IV SCH ×2 (08:37→23:46)
[2017-12-18] MEDS: insulin Lispro (HumaLOG) vial - multi-dose SQ SCH (08:39)
[2017-12-18 10:00] VITALS: BP 117/67
[2017-12-18 14:05] VITALS: BP 109/61
[2017-12-18 18:00] VITALS: BP 129/70
[2017-12-18] MEDS: insulin glargine (Lantus) pen - multi-dose SQ SCH (21:00)
[2017-12-18 22:00] VITALS: BP 114/58
[2017-12-19] VITALS (7 sets, daily range): BP systolic 110–134; BP diastolic 52–71
[2017-12-19] MEDS: HYDROcodone/acetaminophen 10/325mg tab PO PRN ×6 (01:07→23:29)
[2017-12-19] MEDS: hydrALAZINE 25 MG tablet PO SCH ×4 (02:14→20:39)
[2017-12-19] MEDS: sodium chloride 0.45% 1,000 ML IV SCH ×3 (03:55→21:23)
[2017-12-19 06:11] LABS: BASOPHILS # (AUTO) 0.2 X10'3 (0-0.2); BASOPHILS % (AUTO) 1.7 % (0-1); EOSINOPHILS # (AUTO) 0.3 X10'3 (0-0.9); EOSINOPHILS % (AUTO) 3.6 % (0-6); HEMOGLOBIN 9.4 g/dl (12.0-16.0); LYMPHOCYTES # (AUTO) 3.3 X10'3 (1.1-4.8); LYMPHOCYTES % (AUTO) 36.7 % (21-51); MEAN CORPUSCULAR HEMOGLOBIN 28.2 PG (27.0-31.0); MEAN CORPUSCULAR HGB CONC 32.5 % (33.0-36.5); MEAN CORPUSCULAR VOLUME 86.7 FL (78-98); MONOCYTES # (AUTO) 0.7 X10'3 (0-0.9); MONOCYTES % (AUTO) 7.7 % (2-12); NEUTROPHILS # (AUTO) 4.6 X10'3 (1.8-7.7); NEUTROPHILS % (AUTO) 50.3 % (42-75); PLATELET COUNT 256 X10'3 (140-440); RED BLOOD COUNT 3.34 X10'6 (4.20-5.60); RED CELL DISTRIBUTION WIDTH 15.3 % (11.5-14.5); WHITE BLOOD COUNT 9.1 X10'3 (4.5-11.0)
[2017-12-19 07:03] LABS: ALBUMIN 2.7 G/DL (3.4-5.0); ANION GAP 13 (8-16); BLOOD UREA NITROGEN 42 MG/DL (7-18); BUN/CREATININE RATIO 13.7 (6.6-38.0); CALCIUM 8.6 MG/DL (8.5-10.1); CHLORIDE 108 MMOL/L (99-107); CREATININE 3.06 MG/DL (0.40-0.90); GLUCOSE 146 MG/DL (70-104); POTASSIUM 4.1 MMOL/L (3.5-5.1); SODIUM 139 MMOL/L (135-145); TOTAL CARBON DIOXIDE 18.5 MMOL/L (24-32); eGFR 16 ML/MIN
[2017-12-19 07:19] LABS: LARGE PLATELETS FEW; PLATELET ESTIMATE NORMAL
[2017-12-19 07:20] LABS: ANISOCYTOSIS 1+; HYPOCHROMASIA 1+; POIKILOCYTOSIS 1+; POLYCHROMASIA FEW
[2017-12-19] MEDS: metoprolol tartrate 50mg tablet PO SCH ×2 (07:29→20:39)
[2017-12-19] MEDS: thiamine 100mg tablet PO SCH (07:29)
[2017-12-19] MEDS: aspirin 81mg tablet.DR PO SCH (07:30)
[2017-12-19] MEDS: sertraline 50mg tablet PO SCH (07:30)
[2017-12-19] MEDS: levoTHYROXINE 25mcg tablet PO SCH (07:30)
[2017-12-19] MEDS: multivitamins, therapeutics tablet PO SCH (07:30)
[2017-12-19] MEDS: atorvastatin 20mg tablet PO SCH (07:30)
[2017-12-19] MEDS: pantoprazole 40mg Tablet.DR PO SCH (07:30)
[2017-12-19] MEDS: lisinopril 20mg tablet PO SCH (07:30)
[2017-12-19] MEDS: pregabalin 75mg capsule PO SCH ×2 (07:30→20:39)
[2017-12-19] MEDS: insulin Lispro (HumaLOG) vial - multi-dose SQ SCH (13:28)
[2017-12-19] MEDS: insulin glargine (Lantus) pen - multi-dose SQ SCH (20:44)
[2017-12-20] MEDS: hydrALAZINE 25 MG tablet PO SCH ×4 (01:56→20:47)
[2017-12-20 01:57] VITALS: BP 112/63
[2017-12-20 04:51] LABS: CLARITY,URINE CLEAR (Clear); COLOR,URINE STRAW (Yellow); GLUCOSE, URINE NEGATIVE (Neg); KETONES,URINE NEGATIVE (Neg); LEUKOCYTE ESTERASE ,URINE SMALL (Neg); NITRITES, URINE NEGATIVE (Neg); OCCULT BLOOD,URINE NEGATIVE (Neg); PROTEIN,URINE NEGATIVE (Neg); UROBILINOGEN,URINE 0.2 E.U/dL (0.2-1.0)
[2017-12-20 05:05] LABS: UA COLLECTION TYPE FOLEY CATH
[2017-12-20] MEDS: HYDROcodone/acetaminophen 10/325mg tab PO PRN (05:08)
[2017-12-20 05:25] LABS: BACTERIA,URINE FEW /HPF (Neg); RBC,URINE 0-2 /HPF (0-2); SQUAMOUS EPITHELIAL CELL,UR FEW /LPF (FEW); WBC,URINE 0-4 /HPF (0-4)
[2017-12-20 06:00] VITALS: BP 127/62
[2017-12-20 06:53] LABS: ALBUMIN 2.7 G/DL (3.4-5.0); ANION GAP 12 (8-16); BLOOD UREA NITROGEN 41 MG/DL (7-18); BUN/CREATININE RATIO 13.7 (6.6-38.0); CALCIUM 8.6 MG/DL (8.5-10.1); CHLORIDE 107 MMOL/L (99-107); CREATININE 2.99 MG/DL (0.40-0.90); GLUCOSE 146 MG/DL (70-104); POTASSIUM 3.9 MMOL/L (3.5-5.1); SODIUM 139 MMOL/L (135-145); TOTAL CARBON DIOXIDE 19.9 MMOL/L (24-32); eGFR 16 ML/MIN
[2017-12-20] MEDS: levoTHYROXINE 25mcg tablet PO SCH (07:30)
[2017-12-20] MEDS: aspirin 81mg tablet.DR PO SCH (07:31)
[2017-12-20] MEDS: metoprolol tartrate 50mg tablet PO SCH ×2 (07:32→20:47)
[2017-12-20] MEDS: atorvastatin 20mg tablet PO SCH (07:32)
[2017-12-20] MEDS: thiamine 100mg tablet PO SCH (07:32)
[2017-12-20] MEDS: pregabalin 75mg capsule PO SCH ×2 (07:32→20:47)
[2017-12-20] MEDS: pantoprazole 40mg Tablet.DR PO SCH (07:32)
[2017-12-20] MEDS: multivitamins, therapeutics tablet PO SCH (07:32)
[2017-12-20] MEDS: sertraline 50mg tablet PO SCH (07:33)
[2017-12-20] MEDS: LORazepam 0.5 MG tablet PO PRN (08:15)
[2017-12-20 10:00] VITALS: BP 118/61
[2017-12-20] MEDS: sodium chloride 0.45% 1,000 ML IV SCH ×2 (12:59→22:56)
[2017-12-20] MEDS: acetaminophen 325mg tablet PO PRN ×2 (15:40→21:13)
[2017-12-20 16:05] LABS: TOTAL PROTEIN,URINE RANDOM 11.1 MG/DL
[2017-12-20 18:00] VITALS: BP 128/65
[2017-12-20 20:49] VITALS: BP 124/58
[2017-12-20] MEDS: insulin glargine (Lantus) pen - multi-dose SQ SCH (21:00)
[2017-12-20 22:00] VITALS: BP 151/78
[2017-12-21 01:39] VITALS: BP 122/60
[2017-12-21] MEDS: hydrALAZINE 25 MG tablet PO SCH ×3 (01:39→14:00)
[2017-12-21] MEDS: sodium chloride 0.45% 1,000 ML IV SCH ×2 (05:55→15:55)
[2017-12-21] MEDS: acetaminophen 325mg tablet PO PRN ×2 (05:57→12:04)
[2017-12-21 06:00] VITALS: BP 118/66
[2017-12-21 07:30] VITALS: BP 112/56
[2017-12-21] MEDS: atorvastatin 20mg tablet PO SCH (07:31)
[2017-12-21] MEDS: metoprolol tartrate 50mg tablet PO SCH (07:31)
[2017-12-21] MEDS: levoTHYROXINE 25mcg tablet PO SCH (07:31)
[2017-12-21] MEDS: pantoprazole 40mg Tablet.DR PO SCH (07:31)
[2017-12-21] MEDS: pregabalin 75mg capsule PO SCH (07:31)
[2017-12-21] MEDS: aspirin 81mg tablet.DR PO SCH (07:31)
[2017-12-21] MEDS: multivitamins, therapeutics tablet PO SCH (07:31)
[2017-12-21] MEDS: sertraline 50mg tablet PO SCH (07:32)
[2017-12-21] MEDS: thiamine 100mg tablet PO SCH (07:32)
[2017-12-21 10:00] VITALS: BP 107/59
[2017-12-21 11:08] LABS: ALBUMIN 2.8 G/DL (3.4-5.0); ANION GAP 10 (8-16); BLOOD UREA NITROGEN 36 MG/DL (7-18); BUN/CREATININE RATIO 11.8 (6.6-38.0); CALCIUM 8.7 MG/DL (8.5-10.1); CHLORIDE 108 MMOL/L (99-107); CREATININE 3.04 MG/DL (0.40-0.90); GLUCOSE 238 MG/DL (70-104); POTASSIUM 4.2 MMOL/L (3.5-5.1); SODIUM 142 MMOL/L (135-145); TOTAL CARBON DIOXIDE 24.3 MMOL/L (24-32); eGFR 16 ML/MIN
[2017-12-21] MEDS: insulin Lispro (HumaLOG) vial - multi-dose SQ SCH (13:00)
[2017-12-21 14:48] VITALS: BP 111/57
[2017-12-21] MEDS: LORazepam 0.5 MG tablet PO PRN (15:40)
[2017-12-23 12:26] LABS: OCCULT BLOOD STOOL NEGATIVE (Neg)
== END 2017-12-21 17:19 | DRG 682 ==
LOC: ER 04:35 → ED HOLD 09:58 → EDBEDREQ 16:06 → PCU 3S 16:58 → ORTHO 4S 12-16 17:20
PROVIDERS: ADMIT Family Medicine; ATTEND Family Medicine
PROC: 30233N1 Transfusion of Nonautologous Red Blood Cells into Peripheral Vein, Percutaneous Approach (ICD-10-PCS; principal; 2017-12-11)
DX: N17.9 Acute kidney failure, unspecified (principal); G93.41 Metabolic encephalopathy; S82.202A Unspecified fracture of shaft of left tibia, initial encounter for closed fracture; D62 Acute posthemorrhagic anemia; E87.0 Hyperosmolality and hypernatremia; N18.4 Chronic kidney disease, stage 4 (severe); S82.402A Unspecified fracture of shaft of left fibula, initial encounter for closed fracture; E03.9 Hypothyroidism, unspecified; E11.21 Type 2 diabetes mellitus with diabetic nephropathy; E11.22 Type 2 diabetes mellitus with diabetic chronic kidney disease; E86.0 Dehydration; I12.9 Hypertensive chronic kidney disease with stage 1 through stage 4 chronic kidney disease, or unspecified chronic kidney disease; K21.9 Gastro-esophageal reflux disease without esophagitis; R01.1 Cardiac murmur, unspecified; E87.6 Hypokalemia; R79.1 Abnormal coagulation profile; F41.9 Anxiety disorder, unspecified; F17.210 Nicotine dependence, cigarettes, uncomplicated; Z79.891 Long term (current) use of opiate analgesic; Z79.4 Long term (current) use of insulin; Z79.82 Long term (current) use of aspirin; Z79.899 Other long term (current) drug therapy; Z75.1 Person awaiting admission to adequate facility elsewhere
CPT/HCPCS: 36415; 70450; 71045; 78582; 78707; 80048; 80053; 80305; 80320; 80329; 81001; 82140; 82272; 82550; 82570; 82948; 83036; 83605; 83735; 83935; 84100; 84132; 84156; 84166; 84300; 84439; 84443; 84484; 85025; 85379; 85610; 85730; 86885; 86900; 86901; 86920; 87040; 87070; 87077; 87088; 87186; 87207; 92616; 93005; 93306; 93970; 96361; 96374; 96375; 97110; 97116; 97162; 97530; 99285; A4315; A6213; A6449; A9539; A9540; A9562; J1170; J1815; J2060; J2270; J2310; J2405; J3411; J3480; J3490; J7030; J7060; P9016; Q0177

== ENCOUNTER 2018-01-06 15:33 | Inpatient (IN) | payer MEDICARE, MEDICAID ==
[~2018-01-06] VITALS: Ht 152.4 cm; Wt 56.0 kg
[~2018-01-06 15:33] MED LIST changes: -AMLO5TAB4 PO; +ASPI81TA52 PO; +FLO0.4C PO; +FURO-150 PO; +HYDR-3686 PO; -HYDR-3965 PO; +HYDR-4069 PO; +LYR75C PO
[2018-01-06 16:31] LABS: BASOPHILS # (AUTO) 0.1 X10'3 (0-0.2); BASOPHILS % (AUTO) 1.1 % (0-1); EOSINOPHILS # (AUTO) 0.2 X10'3 (0-0.9); EOSINOPHILS % (AUTO) 1.7 % (0-6); HEMATOCRIT 30.6 % (35.0-45.0); HEMOGLOBIN 10.4 g/dl (12.0-16.0); LYMPHOCYTES # (AUTO) 2.1 X10'3 (1.1-4.8); LYMPHOCYTES % (AUTO) 16.9 % (21-51); MEAN CORPUSCULAR HEMOGLOBIN 28.8 PG (27.0-31.0); MEAN CORPUSCULAR HGB CONC 33.8 % (33.0-36.5); MEAN CORPUSCULAR VOLUME 85.2 FL (78-98); MEAN PLATELET VOLUME 11.7 FL (7.4-10.4); MONOCYTES % (AUTO) 7.7 % (2-12); NEUTROPHILS # (AUTO) 9.1 X10'3 (1.8-7.7); NEUTROPHILS % (AUTO) 72.6 % (42-75); PLATELET COUNT 289 X10'3 (140-440); RED CELL DISTRIBUTION WIDTH 16.7 % (11.5-14.5); WHITE BLOOD COUNT 12.5 X10'3 (4.5-11.0)
[2018-01-06 16:42] LABS: PARTIAL THROMBOPLASTIN TIME 27 SECONDS (22-32); PROTHROMBIN TIME 10.4 SECONDS (9.0-12.0)
[2018-01-06 16:48] LABS: ALANINE AMINOTRANSFERASE 32 U/L (12-78); ALBUMIN 3.5 G/DL (3.4-5.0); ALBUMIN/GLOBULIN RATIO 0.8 (1.1-1.5); ALKALINE PHOSPHATASE 172 IU/L (46-116); ANION GAP 12 (8-16); ASPARTATE AMINO TRANSFERASE 25 U/L (10-37); BILIRUBIN,TOTAL 0.3 MG/DL (0.1-1.0); BLOOD UREA NITROGEN 66 MG/DL (7-18); BUN/CREATININE RATIO 25.1 (6.6-38.0); CALCIUM 9.5 MG/DL (8.5-10.1); CHLORIDE 111 MMOL/L (99-107); CREATININE 2.63 MG/DL (0.40-0.90); ETHANOL < 0.010 GM/DL (0.0-0.010); GLUCOSE 159 MG/DL (70-104); POTASSIUM 4.2 MMOL/L (3.5-5.1); SODIUM 143 MMOL/L (135-145); TOTAL CARBON DIOXIDE 20.5 MMOL/L (24-32); TOTAL PROTEIN 8.1 G/DL (6.4-8.2); eGFR 19 ML/MIN
[2018-01-06 16:50] LABS: CLARITY,URINE SLIGHTLY CLOUDY (Clear); COLOR,URINE STRAW (Yellow); GLUCOSE, URINE NEGATIVE (Neg); KETONES,URINE NEGATIVE (Neg); LEUKOCYTE ESTERASE ,URINE SMALL (Neg); NITRITES, URINE POSITIVE (Neg); OCCULT BLOOD,URINE SMALL (Neg); PH,URINE 5.5 (4.8-8.0); PROTEIN,URINE NEGATIVE (Neg); UROBILINOGEN,URINE 0.2 E.U/dL (0.2-1.0)
[2018-01-06 16:53] LABS: UA COLLECTION TYPE STRAIGHT CATH
[2018-01-06 17:01] LABS: BACTERIA,URINE 3+ /HPF (Neg); SQUAMOUS EPITHELIAL CELL,UR FEW /LPF (FEW); WBC CLUMPS,URINE MANY /HPF (NEGATIVE)
[2018-01-06 17:02] LABS: RBC,URINE 0-2 /HPF (0-2)
[2018-01-06 17:10] LABS: URINE AMPHETAMINE SCREEN NEGATIVE (Neg); URINE BARBITUATE SCREEN NEGATIVE (Neg); URINE BENZODIAZEPINES SCREEN NEGATIVE (Neg); URINE CANNABINOID SCREEN NEGATIVE (Neg); URINE COCAINE SCREEN NEGATIVE (Neg); URINE METHADONE SCREEN NEGATIVE (Neg); URINE OPIATE SCREEN POSITIVE (Neg); URINE PHENCYCLIDINE SCREEN NEGATIVE (Neg)
[2018-01-06 17:14] LABS: LARGE PLATELETS FEW; PLATELET ESTIMATE NORMAL
[2018-01-06] MEDS ORDERED: CefTRIAXone 2gm/D5W 50ml 50 ML IV ONE (17:15)
[2018-01-06] MEDS ORDERED: normal saline 1000ML IV soln IVB ONE (17:25)
[2018-01-06] MEDS ORDERED: acetaminophen 325mg tablet PO ONE (18:45)
[2018-01-06] MEDS ORDERED: LORazepam 2 mg/ml vial IV ONE (18:45)
[2018-01-06] MEDS ORDERED: THI100T PO (20:42)
[2018-01-06] MEDS ORDERED: DOCU-28 PO (20:42)
[2018-01-06] MEDS ORDERED: MULT-1002 PO (20:42)
[2018-01-06] MEDS ORDERED: ondansetron/PF 4mg/2ml inj IV PRN (20:50)
[2018-01-06] MEDS ORDERED: dextrose 50%-water 50ml dispensing syringe IV PRN ×2 (20:50)
[2018-01-06] MEDS ORDERED: glucagon, human recombinant 1mg kit SUBCUT PRN (20:50)
[2018-01-06] MEDS ORDERED: acetaminophen 325mg tablet PO PRN ×2 (20:50)
[2018-01-06] MEDS ORDERED: magnesium hydroxide 30ml (MOM) UD suspension PO PRN (20:50)
[2018-01-06] MEDS ORDERED: MESSAGE TO PHARMACY PO ONE (20:50)
[2018-01-06] MEDS ORDERED: mag hydrox/Alum hydrox/simeth 30ml oral suspension PO PRN (20:50)
[2018-01-06] MEDS ORDERED: dextrose ORAL solution 15 GM/59 ML bottle PO PRN ×2 (20:50)
[2018-01-06] MEDS: normal saline 1000ml 1,000 ML IV SCH (21:01)
[2018-01-06] MEDS ORDERED: hydrALAZINE 20mg/ml inj. IV ONE (21:05)
[2018-01-06] MEDS ORDERED: metoprolol tartrate 1mg/ml inj IV ONE (21:05)
[2018-01-06 22:40] VITALS: BP 140/70
[2018-01-06] MEDS: docusate sod 100mg capsule PO SCH (22:49)
[2018-01-06] MEDS: sertraline 50mg tablet PO SCH (22:49)
[2018-01-06] MEDS: insulin glargine (Lantus) pen - multi-dose SQ SCH (22:49)
[2018-01-07] MEDS: hydrALAZINE 25 MG tablet PO SCH ×4 (02:00→21:09)
[2018-01-07 06:18] LABS: ALBUMIN 3.4 G/DL (3.4-5.0); ANION GAP 16 (8-16); BLOOD UREA NITROGEN 46 MG/DL (7-18); BUN/CREATININE RATIO 23.4 (6.6-38.0); CALCIUM 9.1 MG/DL (8.5-10.1); CHLORIDE 112 MMOL/L (99-107); CREATININE 1.97 MG/DL (0.40-0.90); GLUCOSE 163 MG/DL (70-104); POTASSIUM 3.5 MMOL/L (3.5-5.1); SODIUM 145 MMOL/L (135-145); TOTAL CARBON DIOXIDE 16.9 MMOL/L (24-32); eGFR 26 ML/MIN
[2018-01-07] MEDS: aspirin 81mg tablet.DR PO SCH (07:36)
[2018-01-07] MEDS: pantoprazole 40mg Tablet.DR PO SCH (07:36)
[2018-01-07] MEDS: thiamine 100mg tablet PO SCH (07:36)
[2018-01-07] MEDS: CefTRIAXone 2gm/D5W 50ml 50 ML IV SCH (07:36)
[2018-01-07] MEDS: atorvastatin 20mg tablet PO SCH (07:36)
[2018-01-07] MEDS: pregabalin 75mg capsule PO SCH ×2 (07:36→21:09)
[2018-01-07] MEDS: metoprolol tartrate 50mg tablet PO SCH ×2 (07:36→21:21)
[2018-01-07] MEDS: levoTHYROXINE 25mcg tablet PO SCH (07:42)
[2018-01-07 08:00] VITALS: BP 186/81
[2018-01-07 09:00] LABS: BASOPHILS # (AUTO) 0.1 X10'3 (0-0.2); BASOPHILS % (AUTO) 0.6 % (0-1); EOSINOPHILS # (AUTO) 0.3 X10'3 (0-0.9); EOSINOPHILS % (AUTO) 2.3 % (0-6); HEMATOCRIT 32.3 % (35.0-45.0); LYMPHOCYTES # (AUTO) 2.1 X10'3 (1.1-4.8); LYMPHOCYTES % (AUTO) 19.3 % (21-51); MEAN CORPUSCULAR HEMOGLOBIN 28.7 PG (27.0-31.0); MEAN CORPUSCULAR VOLUME 84.5 FL (78-98); MEAN PLATELET VOLUME 11.7 FL (7.4-10.4); MONOCYTES # (AUTO) 0.6 X10'3 (0-0.9); MONOCYTES % (AUTO) 5.7 % (2-12); NEUTROPHILS # (AUTO) 7.8 X10'3 (1.8-7.7); NEUTROPHILS % (AUTO) 72.1 % (42-75); PLATELET COUNT 267 X10'3 (140-440); RED BLOOD COUNT 3.82 X10'6 (4.20-5.60); RED CELL DISTRIBUTION WIDTH 16.5 % (11.5-14.5); WHITE BLOOD COUNT 10.8 X10'3 (4.5-11.0)
[2018-01-07] MEDS: normal saline 1000ml 1,000 ML IV SCH ×2 (09:16→21:30)
[2018-01-07 09:27] LABS: LARGE PLATELETS FEW; PLATELET ESTIMATE NORMAL
[2018-01-07] MEDS ORDERED: potassium Cl 20 mEq SR tablet PO PRN ×2 (10:55)
[2018-01-07] MEDS ORDERED: magnesium 4gm in 100ml NS 100 ML IV PRN (10:55)
[2018-01-07] MEDS ORDERED: magnesium 1gm/100ml D5W IVPB 100 ML IV PRN (10:55)
[2018-01-07] MEDS ORDERED: magnesium Cl slow-release 64mg tablet PO PRN (10:55)
[2018-01-07] MEDS ORDERED: potassium Cl 40MEQ/NS 500ml 500 ML IV PRN ×2 (10:55)
[2018-01-07 11:28] LABS: MAGNESIUM 1.8 MG/DL (1.5-2.4); POTASSIUM 3.8 MMOL/L (3.5-5.1)
[2018-01-07] MEDS: HYDROcodone/acetaminophen 10/325mg tab PO PRN ×2 (11:40→19:16)
[2018-01-07 11:52] LABS: MAGNESIUM 1.9 MG/DL (1.5-2.4); POTASSIUM 3.7 MMOL/L (3.5-5.1)
[2018-01-07 12:00] VITALS: BP 143/75
[2018-01-07 18:40] VITALS: BP 120/75
[2018-01-07] MEDS: insulin glargine (Lantus) pen - multi-dose SQ SCH (21:00)
[2018-01-07] MEDS: sertraline 50mg tablet PO SCH (21:10)
[2018-01-07] MEDS: docusate sod 100mg capsule PO SCH (21:10)
[2018-01-07] MEDS: morphine 2 MG/ML inj. syringe IV PRN (21:14)
[2018-01-08] VITALS: BP 143/98
[2018-01-08] MEDS: morphine 2 MG/ML inj. syringe IV PRN (00:54)
[2018-01-08] MEDS: hydrALAZINE 25 MG tablet PO SCH ×4 (02:06→19:51)
[2018-01-08] MEDS: HYDROcodone/acetaminophen 10/325mg tab PO PRN ×4 (05:57→23:29)
[2018-01-08 07:00] VITALS: BP 130/64
[2018-01-08] MEDS: thiamine 100mg tablet PO SCH (07:29)
[2018-01-08] MEDS: metoprolol tartrate 50mg tablet PO SCH ×2 (07:29→19:51)
[2018-01-08] MEDS: atorvastatin 20mg tablet PO SCH (07:29)
[2018-01-08] MEDS: levoTHYROXINE 25mcg tablet PO SCH (07:29)
[2018-01-08] MEDS: pregabalin 75mg capsule PO SCH ×2 (07:29→19:51)
[2018-01-08] MEDS: aspirin 81mg tablet.DR PO SCH (07:29)
[2018-01-08] MEDS: pantoprazole 40mg Tablet.DR PO SCH (07:29)
[2018-01-08] MEDS: CefTRIAXone 2gm/D5W 50ml 50 ML IV SCH (07:30)
[2018-01-08 07:37] LABS: ALBUMIN 3.1 G/DL (3.4-5.0); ANION GAP 12 (8-16); BLOOD UREA NITROGEN 38 MG/DL (7-18); BUN/CREATININE RATIO 19.5 (6.6-38.0); CALCIUM 9.3 MG/DL (8.5-10.1); CHLORIDE 109 MMOL/L (99-107); CREATININE 1.95 MG/DL (0.40-0.90); GLUCOSE 133 MG/DL (70-104); MAGNESIUM 1.6 MG/DL (1.5-2.4); POTASSIUM 3.9 MMOL/L (3.5-5.1); SODIUM 140 MMOL/L (135-145); TOTAL CARBON DIOXIDE 19.1 MMOL/L (24-32); eGFR 26 ML/MIN
[2018-01-08 07:50] VITALS: BP 130/64
[2018-01-08 09:28] LABS: BASOPHILS # (AUTO) 0.1 X10'3 (0-0.2); EOSINOPHILS # (AUTO) 0.4 X10'3 (0-0.9); HEMATOCRIT 30.7 % (35.0-45.0); HEMOGLOBIN 10.2 g/dl (12.0-16.0); LYMPHOCYTES # (AUTO) 4.1 X10'3 (1.1-4.8); LYMPHOCYTES % (AUTO) 34.3 % (21-51); MEAN CORPUSCULAR HEMOGLOBIN 28.4 PG (27.0-31.0); MEAN CORPUSCULAR HGB CONC 33.2 % (33.0-36.5); MEAN CORPUSCULAR VOLUME 85.4 FL (78-98); MONOCYTES # (AUTO) 0.8 X10'3 (0-0.9); NEUTROPHILS # (AUTO) 6.6 X10'3 (1.8-7.7); NEUTROPHILS % (AUTO) 54.7 % (42-75); PLATELET COUNT 253 X10'3 (140-440); RED CELL DISTRIBUTION WIDTH 16.7 % (11.5-14.5)
[2018-01-08 09:50] LABS: LARGE PLATELETS FEW; PLATELET ESTIMATE NORMAL
[2018-01-08] MEDS: normal saline 1000ml 1,000 ML IV SCH ×2 (10:32→22:33)
[2018-01-08 14:12] VITALS: BP 141/69
[2018-01-08] MEDS ORDERED: midazolam 2 mg/2 ml injection ONE (16:03)
[2018-01-08] MEDS ORDERED: fentaNYL/PF 50MCG/1 ML 2ML syringe ONE (16:03)
[2018-01-08] MEDS ORDERED: LIDOcaine 2% (20mg/ml) 5ml vial ONE (17:19)
[2018-01-08] MEDS ORDERED: neostigmine methylsulfate 1 MG/ML 10ml vial ONE (17:20)
[2018-01-08] MEDS ORDERED: rocuronium 10mg/ml inj IV ONE (17:20)
[2018-01-08] MEDS ORDERED: glycopyrrolate 0.2mg/ml inj ONE (17:20)
[2018-01-08] MEDS ORDERED: propofol inj 20 ML IV ONE (17:20)
[2018-01-08 18:00] VITALS: BP 125/65
[2018-01-08] MEDS: insulin Lispro (HumaLOG) vial - multi-dose SQ SCH (19:17)
[2018-01-08] MEDS: heparin, porcine 5000 units/ml vial SQ SCH (19:52)
[2018-01-08] MEDS: docusate sod 100mg capsule PO SCH (21:59)
[2018-01-08] MEDS: sertraline 50mg tablet PO SCH (21:59)
[2018-01-08 22:00] VITALS: BP 123/64
[2018-01-08] MEDS: insulin glargine (Lantus) pen - multi-dose SQ SCH (22:11)
[2018-01-09] VITALS (20 sets, daily range): BP systolic 83–123; BP diastolic 41–76
[2018-01-09] MEDS: hydrALAZINE 25 MG tablet PO SCH ×4 (02:00→20:34)
[2018-01-09] MEDS: HYDROcodone/acetaminophen 10/325mg tab PO PRN ×2 (06:07→13:58)
[2018-01-09] MEDS ORDERED: BUPIVAcaine/PF 2.5mg/ml (0.25%) 10ml vial ONE (06:36)
[2018-01-09 06:43] LABS: BASOPHILS # (AUTO) 0.1 X10'3 (0-0.2); EOSINOPHILS # (AUTO) 0.4 X10'3 (0-0.9); EOSINOPHILS % (AUTO) 4.4 % (0-6); HEMATOCRIT 27.5 % (35.0-45.0); HEMOGLOBIN 9.2 g/dl (12.0-16.0); LYMPHOCYTES # (AUTO) 4.5 X10'3 (1.1-4.8); LYMPHOCYTES % (AUTO) 45.8 % (21-51); MEAN CORPUSCULAR HEMOGLOBIN 28.5 PG (27.0-31.0); MEAN CORPUSCULAR HGB CONC 33.4 % (33.0-36.5); MEAN CORPUSCULAR VOLUME 85.4 FL (78-98); MEAN PLATELET VOLUME 11.6 FL (7.4-10.4); MONOCYTES # (AUTO) 0.7 X10'3 (0-0.9); MONOCYTES % (AUTO) 7.5 % (2-12); NEUTROPHILS # (AUTO) 4.1 X10'3 (1.8-7.7); NEUTROPHILS % (AUTO) 41.3 % (42-75); PLATELET COUNT 216 X10'3 (140-440); RED BLOOD COUNT 3.22 X10'6 (4.20-5.60); RED CELL DISTRIBUTION WIDTH 17.1 % (11.5-14.5); WHITE BLOOD COUNT 9.9 X10'3 (4.5-11.0)
[2018-01-09 07:06] LABS: LARGE PLATELETS MODERATE; PLATELET ESTIMATE NORMAL
[2018-01-09] MEDS ORDERED: vancomycin/NS 1 GM ADD-VANTAGE 250 ML IV ONE (07:20)
[2018-01-09] MEDS ORDERED: cefazolin/dext.iso 2gm/50ml 50 ML IV ONE (07:20)
[2018-01-09] MEDS: metoprolol tartrate 50mg tablet PO SCH ×2 (07:29→20:34)
[2018-01-09 07:35] LABS: ALBUMIN 2.8 G/DL (3.4-5.0); ANION GAP 10 (8-16); BLOOD UREA NITROGEN 42 MG/DL (7-18); BUN/CREATININE RATIO 18.9 (6.6-38.0); CHLORIDE 109 MMOL/L (99-107); CREATININE 2.22 MG/DL (0.40-0.90); GLUCOSE 147 MG/DL (70-104); MAGNESIUM 1.7 MG/DL (1.5-2.4); POTASSIUM 3.9 MMOL/L (3.5-5.1); SODIUM 139 MMOL/L (135-145); eGFR 23 ML/MIN
[2018-01-09] MEDS ORDERED: fentaNYL/PF 50MCG/1 ML 2ML syringe ONE (08:00)
[2018-01-09] MEDS: heparin, porcine 5000 units/ml vial SQ SCH ×2 (08:00→20:34)
[2018-01-09] MEDS ORDERED: MIDAZolam 5mg/5ml vial ONE (08:00)
[2018-01-09] MEDS: atorvastatin 20mg tablet PO SCH (08:00)
[2018-01-09] MEDS: CefTRIAXone 2gm/D5W 50ml 50 ML IV SCH (08:00)
[2018-01-09] MEDS: thiamine 100mg tablet PO SCH (08:00)
[2018-01-09] MEDS: aspirin 81mg tablet.DR PO SCH (08:00)
[2018-01-09] MEDS ORDERED: morphine sulfate /PF 0.5 MG/ML 10mL ampul ONE (08:04)
[2018-01-09] MEDS ORDERED: BUPIVAcaine/PF 7.5mg/ml (0.75%) 10ml vial ONE (08:06)
[2018-01-09] MEDS ORDERED: ketamine 50mg/5ml syringe ONE (08:32)
[2018-01-09] MEDS ORDERED: ondansetron/PF 4mg/2ml inj IV PRN ×2 (08:50→09:50)
[2018-01-09] MEDS ORDERED: proCHLORperazine 10 MG/2 ml inj IV PRN (08:50)
[2018-01-09] MEDS ORDERED: morphine 4 MG/ML inj SYRINge IV PRN ×2 (08:50)
[2018-01-09] MEDS ORDERED: ringers solution, lacted 1,000 ML IV SCH (08:50)
[2018-01-09] MEDS ORDERED: meperidine/PF 25mg/ml syringe IV PRN ×3 (08:50)
[2018-01-09] MEDS ORDERED: naloxone 2mg/2ml inj 1.2 MG in normal saline 500ml IV soln 500 ML IV PRN (09:47)
[2018-01-09] MEDS ORDERED: diphenhydrAMINE 50 mg/ml inj IV PRN (09:50)
[2018-01-09] MEDS: pregabalin 75mg capsule PO SCH ×2 (13:59→20:33)
[2018-01-09] MEDS: levoTHYROXINE 25mcg tablet PO SCH (13:59)
[2018-01-09] MEDS: pantoprazole 40mg Tablet.DR PO SCH (13:59)
[2018-01-09] MEDS: normal saline 1000ml 1,000 ML IV SCH (14:02)
[2018-01-09] MEDS: oxyCODONE/APAP 10/325mg tablet PO PRN ×2 (16:40→20:34)
[2018-01-09] MEDS: ceFAZolin 1GM/D5W- ADD-VANTAGE 50 ML IV SCH ×2 (16:48→23:39)
[2018-01-09] MEDS: insulin Lispro (HumaLOG) vial - multi-dose SQ SCH (19:50)
[2018-01-09] MEDS: sertraline 50mg tablet PO SCH (20:33)
[2018-01-09] MEDS: lactobacillus rhamnosus 10,000 MMU CELLS/CAPSULE PO SCH (20:34)
[2018-01-09] MEDS: docusate sod 100mg capsule PO SCH (20:34)
[2018-01-09] MEDS: insulin glargine (Lantus) pen - multi-dose SQ SCH (21:41)
[2018-01-10] MEDS: oxyCODONE/APAP 10/325mg tablet PO PRN ×4 (01:13→17:16)
[2018-01-10] MEDS: normal saline 1000ml 1,000 ML IV SCH ×3 (01:13→19:35)
[2018-01-10] MEDS: hydrALAZINE 25 MG tablet PO SCH ×4 (01:13→20:00)
[2018-01-10 02:11] VITALS: BP 95/57
[2018-01-10 06:00] VITALS: BP 97/59
[2018-01-10] MEDS: metoprolol tartrate 50mg tablet PO SCH ×2 (08:00→19:59)
[2018-01-10 09:00] LABS: BASOPHILS # (AUTO) 0.1 X10'3 (0-0.2); BASOPHILS % (AUTO) 0.6 % (0-1); EOSINOPHILS # (AUTO) 0.1 X10'3 (0-0.9); EOSINOPHILS % (AUTO) 1.2 % (0-6); HEMATOCRIT 22.1 % (35.0-45.0); HEMOGLOBIN 7.3 g/dl (12.0-16.0); LYMPHOCYTES % (AUTO) 16.8 % (21-51); MEAN CORPUSCULAR HEMOGLOBIN 28.8 PG (27.0-31.0); MEAN CORPUSCULAR HGB CONC 33.3 % (33.0-36.5); MEAN CORPUSCULAR VOLUME 86.4 FL (78-98); MEAN PLATELET VOLUME 11.2 FL (7.4-10.4); MONOCYTES # (AUTO) 1.2 X10'3 (0-0.9); MONOCYTES % (AUTO) 9.9 % (2-12); NEUTROPHILS # (AUTO) 8.4 X10'3 (1.8-7.7); NEUTROPHILS % (AUTO) 71.5 % (42-75); PLATELET COUNT 178 X10'3 (140-440); RED BLOOD COUNT 2.55 X10'6 (4.20-5.60); RED CELL DISTRIBUTION WIDTH 16.8 % (11.5-14.5); WHITE BLOOD COUNT 11.7 X10'3 (4.5-11.0)
[2018-01-10 09:10] LABS: ALBUMIN 2.8 G/DL (3.4-5.0); ANION GAP 12 (8-16); BLOOD UREA NITROGEN 37 MG/DL (7-18); BUN/CREATININE RATIO 15.1 (6.6-38.0); CALCIUM 8.5 MG/DL (8.5-10.1); CHLORIDE 107 MMOL/L (99-107); CREATININE 2.45 MG/DL (0.40-0.90); GLUCOSE 152 MG/DL (70-104); MAGNESIUM 1.5 MG/DL (1.5-2.4); POTASSIUM 4.2 MMOL/L (3.5-5.1); SODIUM 137 MMOL/L (135-145); TOTAL CARBON DIOXIDE 17.6 MMOL/L (24-32); eGFR 20 ML/MIN
[2018-01-10 10:00] VITALS: BP 99/55
[2018-01-10 10:02] LABS: ANISOCYTOSIS 1+; LARGE PLATELETS MODERATE; PLATELET ESTIMATE NORMAL; TOTAL CELLS COUNTED 100
[2018-01-10] MEDS ORDERED: magnesium oxide 400mg tablet PO ONE (10:15)
[2018-01-10] MEDS: thiamine 100mg tablet PO SCH (11:06)
[2018-01-10] MEDS: CefTRIAXone 2gm/D5W 50ml 50 ML IV SCH (11:06)
[2018-01-10] MEDS: pregabalin 75mg capsule PO SCH ×2 (11:07→20:00)
[2018-01-10] MEDS: pantoprazole 40mg Tablet.DR PO SCH (11:07)
[2018-01-10] MEDS: atorvastatin 20mg tablet PO SCH (11:07)
[2018-01-10] MEDS: levoTHYROXINE 25mcg tablet PO SCH (11:07)
[2018-01-10] MEDS: lactobacillus rhamnosus 10,000 MMU CELLS/CAPSULE PO SCH ×2 (11:07→20:00)
[2018-01-10] MEDS: aspirin 81mg tablet.DR PO SCH (11:07)
[2018-01-10 11:12] LABS: % IRON SATURATION 5 % (11-46); IRON 14 UG/DL (49-151); TOTAL IRON BINDING CAPACITY 260 UG/DL (259-388)
[2018-01-10] MEDS: heparin, porcine 5000 units/ml vial SQ SCH ×2 (11:17→20:01)
[2018-01-10] MEDS: insulin Lispro (HumaLOG) vial - multi-dose SQ SCH (13:52)
[2018-01-10 14:00] VITALS: BP 101/53
[2018-01-10 18:00] VITALS: BP 123/65
[2018-01-10] MEDS: ferrous sulfate ER tablet 140 MG TABLET.ER PO SCH (20:00)
[2018-01-10] MEDS: docusate sod 100mg capsule PO SCH (21:18)
[2018-01-10] MEDS: sertraline 50mg tablet PO SCH (21:18)
[2018-01-10] MEDS: oxyCODONE/APAP 5-325mg tablet PO PRN (21:19)
[2018-01-10] MEDS: insulin glargine (Lantus) pen - multi-dose SQ SCH (21:21)
[2018-01-10 22:44] VITALS: BP 102/53
[2018-01-11] VITALS (12 sets, daily range): BP systolic 101–140; BP diastolic 53–82
[2018-01-11] MEDS: normal saline 1000ml 1,000 ML IV SCH ×5 (01:49→22:15)
[2018-01-11] MEDS: hydrALAZINE 25 MG tablet PO SCH ×4 (01:49→21:04)
[2018-01-11] MEDS: oxyCODONE/APAP 5-325mg tablet PO PRN (01:56)
[2018-01-11 07:08] LABS: BASOPHILS % (AUTO) 0.3 % (0-1); EOSINOPHILS # (AUTO) 0.1 X10'3 (0-0.9); EOSINOPHILS % (AUTO) 0.9 % (0-6); LYMPHOCYTES # (AUTO) 2.5 X10'3 (1.1-4.8); LYMPHOCYTES % (AUTO) 21.3 % (21-51); MEAN CORPUSCULAR HEMOGLOBIN 28.6 PG (27.0-31.0); MEAN CORPUSCULAR HGB CONC 33.9 % (33.0-36.5); MEAN CORPUSCULAR VOLUME 84.5 FL (78-98); MONOCYTES # (AUTO) 1.1 X10'3 (0-0.9); MONOCYTES % (AUTO) 9.6 % (2-12); NEUTROPHILS % (AUTO) 67.9 % (42-75); RED BLOOD COUNT 2.31 X10'6 (4.20-5.60); RED CELL DISTRIBUTION WIDTH 16.4 % (11.5-14.5); WHITE BLOOD COUNT 11.7 X10'3 (4.5-11.0)
[2018-01-11 07:20] LABS: HEMOGLOBIN 6.6 g/dl (12.0-16.0)
[2018-01-11 07:21] LABS: ALBUMIN 2.5 G/DL (3.4-5.0); ANION GAP 15 (8-16); BLOOD UREA NITROGEN 34 MG/DL (7-18); BUN/CREATININE RATIO 14.6 (6.6-38.0); CALCIUM 8.8 MG/DL (8.5-10.1); CHLORIDE 106 MMOL/L (99-107); CREATININE 2.33 MG/DL (0.40-0.90); GLUCOSE 133 MG/DL (70-104); HEMATOCRIT 19.5 % (35.0-45.0); MAGNESIUM 1.6 MG/DL (1.5-2.4); SODIUM 138 MMOL/L (135-145); TOTAL CARBON DIOXIDE 16.9 MMOL/L (24-32); eGFR 21 ML/MIN
[2018-01-11 07:51] LABS: MEAN PLATELET VOLUME 11.4 FL (7.4-10.4); PLATELET COUNT 154 X10'3 (140-440)
[2018-01-11] MEDS: aspirin 81mg tablet.DR PO SCH (08:00)
[2018-01-11] MEDS: heparin, porcine 5000 units/ml vial SQ SCH ×2 (08:00→21:04)
[2018-01-11] MEDS: ferrous sulfate ER tablet 140 MG TABLET.ER PO SCH ×2 (10:55→21:04)
[2018-01-11] MEDS: metoprolol tartrate 50mg tablet PO SCH ×2 (10:55→21:04)
[2018-01-11] MEDS: levoTHYROXINE 25mcg tablet PO SCH (10:55)
[2018-01-11] MEDS: lactobacillus rhamnosus 10,000 MMU CELLS/CAPSULE PO SCH ×2 (10:55→21:04)
[2018-01-11] MEDS: oxyCODONE/APAP 10/325mg tablet PO PRN ×2 (10:55→15:21)
[2018-01-11] MEDS: CefTRIAXone 2gm/D5W 50ml 50 ML IV SCH (16:00)
[2018-01-11] MEDS: pregabalin 75mg capsule PO SCH ×2 (16:04→21:04)
[2018-01-11] MEDS: thiamine 100mg tablet PO SCH (16:04)
[2018-01-11] MEDS: atorvastatin 20mg tablet PO SCH (16:04)
[2018-01-11] MEDS: pantoprazole 40mg Tablet.DR PO SCH (16:04)
[2018-01-11] MEDS: iron sucrose complex injection 300 MG in normal saline 250ml IV soln 235 ML IV SCH (17:55)
[2018-01-11] MEDS: insulin Lispro (HumaLOG) vial - multi-dose SQ SCH (19:04)
[2018-01-11] MEDS: insulin glargine (Lantus) pen - multi-dose SQ SCH (21:03)
[2018-01-11] MEDS: sertraline 50mg tablet PO SCH (21:04)
[2018-01-11] MEDS: docusate sod 100mg capsule PO SCH (21:04)
[2018-01-12] VITALS (8 sets, daily range): BP systolic 89–141; BP diastolic 50–91
[2018-01-12] MEDS: normal saline 1000ml 1,000 ML IV SCH ×3 (03:07→11:35)
[2018-01-12] MEDS: hydrALAZINE 25 MG tablet PO SCH ×2 (03:08→07:26)
[2018-01-12] MEDS: oxyCODONE/APAP 10/325mg tablet PO PRN ×4 (03:08→21:20)
[2018-01-12 06:41] LABS: BASOPHILS % (AUTO) 0.2 % (0-1); EOSINOPHILS # (AUTO) 0.1 X10'3 (0-0.9); EOSINOPHILS % (AUTO) 1.1 % (0-6); HEMATOCRIT 26.9 % (35.0-45.0); HEMOGLOBIN 9.1 g/dl (12.0-16.0); LYMPHOCYTES % (AUTO) 15.6 % (21-51); MEAN CORPUSCULAR HEMOGLOBIN 29.4 PG (27.0-31.0); MEAN CORPUSCULAR VOLUME 86.7 FL (78-98); MEAN PLATELET VOLUME 11.2 FL (7.4-10.4); MONOCYTES # (AUTO) 1.1 X10'3 (0-0.9); MONOCYTES % (AUTO) 8.3 % (2-12); NEUTROPHILS # (AUTO) 9.7 X10'3 (1.8-7.7); NEUTROPHILS % (AUTO) 74.8 % (42-75); PLATELET COUNT 174 X10'3 (140-440); RED CELL DISTRIBUTION WIDTH 16.1 % (11.5-14.5)
[2018-01-12 06:56] LABS: ALANINE AMINOTRANSFERASE 13 U/L (12-78); ALBUMIN 2.6 G/DL (3.4-5.0); ALBUMIN/GLOBULIN RATIO 0.6 (1.1-1.5); ALKALINE PHOSPHATASE 118 IU/L (46-116); ANION GAP 11 (8-16); ASPARTATE AMINO TRANSFERASE 23 U/L (10-37); BILIRUBIN,TOTAL 0.3 MG/DL (0.1-1.0); BLOOD UREA NITROGEN 30 MG/DL (7-18); BUN/CREATININE RATIO 13.2 (6.6-38.0); CHLORIDE 108 MMOL/L (99-107); CREATININE 2.27 MG/DL (0.40-0.90); GLUCOSE 131 MG/DL (70-104); POTASSIUM 4.3 MMOL/L (3.5-5.1); SODIUM 139 MMOL/L (135-145); TOTAL CARBON DIOXIDE 19.8 MMOL/L (24-32); TOTAL PROTEIN 6.7 G/DL (6.4-8.2); eGFR 22 ML/MIN
[2018-01-12] MEDS: pantoprazole 40mg Tablet.DR PO SCH (07:26)
[2018-01-12] MEDS: pregabalin 75mg capsule PO SCH ×2 (07:26→19:52)
[2018-01-12] MEDS: atorvastatin 20mg tablet PO SCH (07:26)
[2018-01-12] MEDS: ferrous sulfate ER tablet 140 MG TABLET.ER PO SCH ×2 (07:26→19:52)
[2018-01-12] MEDS: lactobacillus rhamnosus 10,000 MMU CELLS/CAPSULE PO SCH ×2 (07:26→19:52)
[2018-01-12] MEDS: levoTHYROXINE 25mcg tablet PO SCH (07:26)
[2018-01-12] MEDS: metoprolol tartrate 50mg tablet PO SCH (07:26)
[2018-01-12] MEDS: aspirin 81mg tablet.DR PO SCH (07:26)
[2018-01-12] MEDS: heparin, porcine 5000 units/ml vial SQ SCH ×2 (07:27→19:53)
[2018-01-12] MEDS: thiamine 100mg tablet PO SCH (07:27)
[2018-01-12 07:39] LABS: PLATELET ESTIMATE NORMAL
[2018-01-12 07:40] LABS: LARGE PLATELETS FEW
[2018-01-12] MEDS: CefTRIAXone 2gm/D5W 50ml 50 ML IV SCH (08:00)
[2018-01-12] MEDS: iron sucrose complex injection 300 MG in normal saline 250ml IV soln 235 ML IV SCH (08:00)
[2018-01-12] MEDS: insulin Lispro (HumaLOG) vial - multi-dose SQ SCH ×3 (08:36→18:49)
[2018-01-12] MEDS: sulfamethoxazole/trimethoprim DS (800/160mg) tablet PO SCH (19:52)
[2018-01-12] MEDS: metoprolol tartrate 25mg tablet PO SCH (19:52)
[2018-01-12] MEDS: insulin glargine (Lantus) pen - multi-dose SQ SCH (21:00)
[2018-01-12] MEDS: docusate sod 100mg capsule PO SCH (21:07)
[2018-01-12] MEDS: sertraline 50mg tablet PO SCH (21:07)
[2018-01-13] MEDS: oxyCODONE/APAP 10/325mg tablet PO PRN ×3 (03:47→15:12)
[2018-01-13 06:00] VITALS: BP 146/69
[2018-01-13 06:09] LABS: ALBUMIN 2.6 G/DL (3.4-5.0); ANION GAP 14 (8-16); BLOOD UREA NITROGEN 34 MG/DL (7-18); BUN/CREATININE RATIO 13.6 (6.6-38.0); CALCIUM 8.6 MG/DL (8.5-10.1); CHLORIDE 109 MMOL/L (99-107); GLUCOSE 100 MG/DL (70-104); POTASSIUM 3.7 MMOL/L (3.5-5.1); SODIUM 142 MMOL/L (135-145); TOTAL CARBON DIOXIDE 19.4 MMOL/L (24-32); eGFR 20 ML/MIN
[2018-01-13 06:11] LABS: BASOPHILS # (AUTO) 0.1 X10'3 (0-0.2); EOSINOPHILS # (AUTO) 0.6 X10'3 (0-0.9); HEMOGLOBIN 8.3 g/dl (12.0-16.0); LYMPHOCYTES # (AUTO) 3.6 X10'3 (1.1-4.8); LYMPHOCYTES % (AUTO) 34.8 % (21-51); MEAN CORPUSCULAR HGB CONC 33.2 % (33.0-36.5); MEAN CORPUSCULAR VOLUME 87.3 FL (78-98); MEAN PLATELET VOLUME 11.6 FL (7.4-10.4); MONOCYTES % (AUTO) 9.3 % (2-12); NEUTROPHILS # (AUTO) 5.1 X10'3 (1.8-7.7); NEUTROPHILS % (AUTO) 48.9 % (42-75); PLATELET COUNT 190 X10'3 (140-440); RED BLOOD COUNT 2.86 X10'6 (4.20-5.60); RED CELL DISTRIBUTION WIDTH 16.3 % (11.5-14.5); WHITE BLOOD COUNT 10.4 X10'3 (4.5-11.0)
[2018-01-13 06:51] LABS: LARGE PLATELETS FEW; PLATELET ESTIMATE NORMAL
[2018-01-13] MEDS: pregabalin 75mg capsule PO SCH (08:27)
[2018-01-13] MEDS: sulfamethoxazole/trimethoprim DS (800/160mg) tablet PO SCH (08:27)
[2018-01-13] MEDS: metoprolol tartrate 25mg tablet PO SCH (08:27)
[2018-01-13] MEDS: aspirin 81mg tablet.DR PO SCH (08:27)
[2018-01-13] MEDS: lactobacillus rhamnosus 10,000 MMU CELLS/CAPSULE PO SCH (08:27)
[2018-01-13] MEDS: thiamine 100mg tablet PO SCH (08:27)
[2018-01-13] MEDS: levoTHYROXINE 25mcg tablet PO SCH (08:27)
[2018-01-13] MEDS: ferrous sulfate ER tablet 140 MG TABLET.ER PO SCH (08:27)
[2018-01-13] MEDS: atorvastatin 20mg tablet PO SCH (08:27)
[2018-01-13] MEDS: pantoprazole 40mg Tablet.DR PO SCH (08:27)
[2018-01-13] MEDS: heparin, porcine 5000 units/ml vial SQ SCH (08:28)
[2018-01-13 10:00] VITALS: BP 120/99
== END 2018-01-13 16:00 | DRG 492 ==
LOC: ER 15:33 → ED HOLD 20:46 → SUR 3N 22:32 → ORTHO 4S 01-08 10:52
PROVIDERS: ADMIT Internal Medicine; ATTEND Internal Medicine
PROC: BQ1FZZZ Fluoroscopy of Left Lower Leg (ICD-10-PCS; 2018-01-09)
PROC: 0QSH06Z Reposition Left Tibia with Intramedullary Internal Fixation Device, Open Approach (ICD-10-PCS; principal; 2018-01-09 07:50)
PROC: 30233N1 Transfusion of Nonautologous Red Blood Cells into Peripheral Vein, Percutaneous Approach (ICD-10-PCS; 2018-01-11)
DX: S82.202A Unspecified fracture of shaft of left tibia, initial encounter for closed fracture (principal); G93.40 Encephalopathy, unspecified; N39.0 Urinary tract infection, site not specified; E11.22 Type 2 diabetes mellitus with diabetic chronic kidney disease; I12.9 Hypertensive chronic kidney disease with stage 1 through stage 4 chronic kidney disease, or unspecified chronic kidney disease; I35.0 Nonrheumatic aortic (valve) stenosis; D64.9 Anemia, unspecified; E03.9 Hypothyroidism, unspecified; F41.9 Anxiety disorder, unspecified; E78.5 Hyperlipidemia, unspecified; S82.402A Unspecified fracture of shaft of left fibula, initial encounter for closed fracture; W08.XXXA Fall from other furniture, initial encounter; F17.200 Nicotine dependence, unspecified, uncomplicated; Z60.2 Problems related to living alone; Z66 Do not resuscitate; B95.7 Other staphylococcus as the cause of diseases classified elsewhere; N18.3 Chronic kidney disease, stage 3 (moderate); R29.6 Repeated falls; Z79.82 Long term (current) use of aspirin; Z79.899 Other long term (current) drug therapy; Z79.4 Long term (current) use of insulin; Z86.14 Personal history of Methicillin resistant Staphylococcus aureus infection; Y93.89 Activity, other specified; Y92.89 Other specified places as the place of occurrence of the external cause; Y99.8 Other external cause status
CPT/HCPCS: 36415; 71045; 73590; 76000; 80048; 80053; 80305; 80320; 81001; 82140; 82607; 82746; 82948; 83540; 83550; 83735; 84132; 84443; 85025; 85610; 85730; 86885; 86900; 86901; 86920; 87077; 87088; 87186; 93005; 93971; 96365; 96375; 97116; 97162; 97530; 99285; A4315; A4353; A6212; A6222; A6449; A7000; J0360; J0690; J0696; J1200; J1644; J1815; J2001; J2060; J2250; J2270; J2274; J2704; J2710; J3010; J3370; J3490; J7030; J7120; L4360; P9016

== ENCOUNTER 2019-03-29 11:59 | Day surgery (SDC) | payer MEDICARE, MEDICAID ==
[2019-03-27 14:09] LABS: BASOPHILS # (AUTO) 0.3 X10'3 (0-0.2); EOSINOPHILS # (AUTO) 0.3 X10'3 (0-0.9); EOSINOPHILS % (AUTO) 1.9 % (0-6); HEMATOCRIT 39.2 % (35.0-45.0); HEMOGLOBIN 13.2 g/dl (12.0-16.0); LYMPHOCYTES # (AUTO) 3.7 X10'3 (1.1-4.8); LYMPHOCYTES % (AUTO) 27.3 % (21-51); MEAN CORPUSCULAR HEMOGLOBIN 29.5 PG (27.0-31.0); MEAN CORPUSCULAR HGB CONC 33.6 g/dL (33.0-36.5); MEAN CORPUSCULAR VOLUME 87.6 FL (78-98); MONOCYTES # (AUTO) 0.7 X10'3 (0-0.9); MONOCYTES % (AUTO) 4.8 % (2-12); NEUTROPHILS # (AUTO) 8.8 X10'3 (1.8-7.7); PLATELET COUNT 286 X10'3 (140-440); RED BLOOD COUNT 4.48 X10'6 (4.20-5.60); RED CELL DISTRIBUTION WIDTH 15.3 % (11.5-14.5); WHITE BLOOD COUNT 13.7 X10'3 (4.5-11.0)
[2019-03-27 14:17] LABS: ALBUMIN 3.8 G/DL (3.4-5.0); ANION GAP 8 (8-16); BLOOD UREA NITROGEN 22 MG/DL (7-18); BUN/CREATININE RATIO 11.9 (6.6-38.0); CALCIUM 9.8 MG/DL (8.5-10.1); CHLORIDE 106 MMOL/L (99-107); CREATININE 1.85 MG/DL (0.40-0.90); GLUCOSE 281 MG/DL (70-104); POTASSIUM 4.6 MMOL/L (3.5-5.1); SODIUM 140 MMOL/L (135-145); TOTAL CARBON DIOXIDE 25.6 MMOL/L (24-32); eGFR 28 ML/MIN
[2019-03-27 14:20] LABS: PARTIAL THROMBOPLASTIN TIME 28 SECONDS (22-32)
[~2019-03-29] VITALS: Ht 152.4 cm; Wt 63.3 kg
[2019-03-29] VITALS (7 sets, daily range): BP systolic 99–152; BP diastolic 65–84
[~2019-03-29 11:59] MED LIST changes: -BACL10TA2 PO; +DOCU-28 PO; -FENO160T PO; -FLO0.4C PO; -FURO-150 PO; -HYDR-3686 PO; -LISI-600 PO; -LORA-269 PO; +MULT-1002 PO; +THI100T PO
[2019-03-29] MEDS ORDERED: normal saline 1,000 ML IV SCH (12:35)
[2019-03-29] MEDS ORDERED: LORazepam 0.5 MG tablet PO PRN (12:35)
[2019-03-29] MEDS ORDERED: diphenhydrAMINE 25mg capsule PO PRN (12:35)
[2019-03-29] MEDS ORDERED: INSU100V9 SQ (13:17)
[2019-03-29] MEDS ORDERED: HYDR-3686 PO (13:17)
[2019-03-29] MEDS ORDERED: LISI-600 PO (13:17)
[2019-03-29] MEDS ORDERED: dextrose ORAL solution 15 GM/59 ML bottle PO PRN ×2 (13:50)
[2019-03-29] MEDS ORDERED: dextrose 50%-water 50ml dispensing syringe IV PRN ×2 (13:50)
[2019-03-29] MEDS ORDERED: insulin regular, human vial - multi-dose SQ SCH (13:50)
[2019-03-29] MEDS ORDERED: insulin Lispro (HumaLOG) vial - multi-dose SQ SCH (13:50)
[2019-03-29] MEDS ORDERED: MESSAGE TO PHARMACY PO ONE (13:50)
[2019-03-29] MEDS ORDERED: glucagon, human recombinant 1mg kit SUBCUT PRN (13:50)
--- NOTE | 2019-03-29 14:16 | NUR ---
GOT INSULIN PROTOCOL ORDERED PER DR JEAN-BAPTISTE PATIENT WAS 319 WHEN SHE CAME IN, PATIENT NOW IS 227 WITHOUT GIVING INSULIN AND IS STILL NPO TILL 5 FOR PROCEDURE. PATIENT WANTS TO HOLD OFF ON INSULIN FOR NOW, WILL CONTINUE TO MONITOR IF PATIENT FEELS SHE IS GETTING LOW.
[2019-03-29] MEDS ORDERED: heparin 1,000 UNITS/NS 500ml 500 ML ONE ×2 (17:27)
[2019-03-29] MEDS ORDERED: LIDOcaine 1% W/epiNEPHrine 1:100,000 20ml vial ONE (17:27)
[2019-03-29] MEDS ORDERED: iohexol 350MG/ML 100ml bottle IV ONE (17:27)
[2019-03-29] MEDS ORDERED: fentaNYL/PF 50MCG/1 ML 2ML syringe ONE (19:11)
[2019-03-29] MEDS ORDERED: midazolam 2 mg/2 ml injection ONE (19:12)
--- NOTE | 2019-03-29 20:11 | NUR ---
Patient in room . I have received report from Graphic User Interface Designer RN and had the opportunity to ask questions and assume patient care.
--- NOTE | 2019-03-29 20:40 | NUR ---
Pt refused to have BG checked at 2100, per pt she will take care of it when she gets home, family member who will pick her up will be told to remind patient to check BG and take lantus insulin
[2019-03-29] MEDS ORDERED: insulin glargine (Lantus) pen - multi-dose SQ SCH (21:00)
--- NOTE | 2019-03-29 22:15 | NUR ---
pt dc per Dr. Patino's orders, pt stable no bleeding, bruising, or hematoma at right groin, pt denies pain, pt taken home by daughter DC education given to pt all questions answered. pt transferred to vehicle via wheelchair.
== END 2019-03-29 22:00 | disposition home or self-care (01) ==
LOC: SSTAY O 11:59 → PCU 3S 20:15 → SSTAY O 22:00
PROVIDERS: ATTEND Internal Medicine Interventional Cardiology
DX: I35.0 Nonrheumatic aortic (valve) stenosis (principal); I25.10 Atherosclerotic heart disease of native coronary artery without angina pectoris; E11.22 Type 2 diabetes mellitus with diabetic chronic kidney disease; I12.9 Hypertensive chronic kidney disease with stage 1 through stage 4 chronic kidney disease, or unspecified chronic kidney disease; N18.3 Chronic kidney disease, stage 3 (moderate); E03.9 Hypothyroidism, unspecified; E78.5 Hyperlipidemia, unspecified; F17.210 Nicotine dependence, cigarettes, uncomplicated; Z79.4 Long term (current) use of insulin; Z79.82 Long term (current) use of aspirin; Z79.899 Other long term (current) drug therapy
CPT/HCPCS: 36415; 80048; 82948; 85025; 85610; 85730; 93005; 93454; 99152; 99153; C1769; J1644; J2250; J3010; J7030; Q0163; Q9967; A4620; A6258; G0378; J1815